=== PATIENT | male | born 1950 | race Hispanic/Latino ===

== ENCOUNTER 2017-08-19 16:14 | Inpatient (IN) | payer MEDICARE, SELFPAY ==
[2017-08-19 16:44] LABS: #Eosinphils 0.2 thou/uL (0.0-0.7); #Lymphocytes 0.9 thou/uL (1.20-3.40); #Monocytes 0.6 thou/uL (0.11-0.59); #Neutrophils 7.5 thou/uL (1.40-6.50); %Basophils 0.1 % (0.0-1.0); %Eosinophils 1.7 % (0.0-10.0); %Lymphocytes 9.5 % (21.0-51.0); Hematocrit 44.3 % (42.0-52.0); Mean Platelet Volume 7.4 fL (7.4-10.4); Red Blood Cell (RBC) Count 5.09 mill/uL (4.70-6.10); White Blood Cell (WBC) Count 9.1 thou/uL (4.8-10.8)
[2017-08-19 16:54] LABS: PTT 39.4 SEC (22.9-36.1); Prothrombin Time 24.4 SEC (12.0-14.7)
[2017-08-19 17:03] LABS: Lactic Acid - Sepsis 1.6 mmol/L (0.5-2.2)
[2017-08-19 17:06] LABS: Troponin I 0.012 ng/mL (< 0.028)
[2017-08-19 17:12] LABS: ALT (SGPT) 44 U/L (8-55); AST (SGOT) 27 U/L (5-34); Alkaline Phosphatase 89 U/L (40-150); Anion Gap 15 mmol/L (10-20); BUN (Urea Nitrogen) 13 mg/dL (8.4-25.7); Bilirubin, Total 0.4 mg/dL (0.2-1.2); CK (CPK) 213 U/L (30-200); Calc. Creatinine Clearance 0 mL/min (70-130); Calcium 9.3 mg/dL (7.8-10.44); Carbon Dioxide 25 mmol/L (23-31); Chloride 101 mmol/L (98-107); Estimated GFR-MDRD Greater than 90; Globulin 3.6 g/dL (2.4-3.5); Lipase 11 U/L (8-78); Protein, Total 7.6 g/dL (5.8-8.1)
--- NOTE | 2017-08-19 18:16 | RAD ---
AP VIEW OF THE CHEST 08/19/17 Cough. Concern for pneumonia. FINDINGS: The exam is compared to prior dated 05/17/15. There is patchy opacity within the left lower lobe which can be related to low lung volumes or devel oping pneumonia. Recommend correlation with the clinical exam. No pleural effusion or pneumothorax i s evident. Osseous structures are unchanged. Heart size is mildly prominent and stable. IMPRESSION: 1. Patchy opacity within the left lower lobe may be related to subsegmental atelectasis from th e low lung volumes. The patient had poor inspiration during the exam. A repeat two view of the chest may be helpful to exclude the presence of pneumonia in the left lower lobe. 2. Stable mild cardiomegaly. POS: MARIE
[2017-08-19] MEDS ORDERED: Acetaminophen 500 MG TAB ONE (18:18)
[2017-08-19] MEDS ORDERED: Ondansetron ODT 4 MG TAB SL PRN (20:06)
[2017-08-19] MEDS ORDERED: Sodium Chloride 0.9% 1,000 ML IV SCH ×2 (20:06→20:16)
[2017-08-19] MEDS ORDERED: Ondansetron HCl/PF 4 MG/2 ML Vial IVP PRN (20:06)
[2017-08-19] MEDS ORDERED: Zolpidem Tartrate 5 MG TAB PO PRN (20:16)
[2017-08-19] MEDS ORDERED: Acetaminophen 325 MG TAB PO PRN (20:16)
[2017-08-19] MEDS ORDERED: Senokot 8.6 MG TAB PO PRN (20:16)
[2017-08-19] MEDS ORDERED: Ondansetron ODT 4 MG TAB PO PRN (20:16)
[2017-08-19] MEDS: Famotidine 20 MG TAB PO SCH (21:45)
[2017-08-19] MEDS: cefTRIAXone\\ROCEPHIN 1 GM in Sodium Chloride 0.9% 100 ML IVPB SCH (21:45)
--- NOTE | 2017-08-19 21:58 | HP ---
HISTORY OF PRESENT ILLNESS: Mr. Cota is a 67-year-old man. Since early this morning, he has been coughing with productive sputum, wheezing and having some fever. He went to his primary ma re physician; he was felt to have pneumonia and he was sent to this facility. He was evaluated in [facility] ER and he was found to have a right-sided pneumonia. He is being admitted for management. He di d have some diarrhea yesterday. There is no vomiting. PAST MEDICAL HISTORY: Remarkable for hypertension, coronary artery disease, cerebrovascular acciden t and also he has a history of seizure disorder associated with his cerebrovascular accident. PAST SURGICAL HISTORY: Remarkable for coronary artery bypass graft and he had a percutaneous endosc opic gastrostomy, which was later removed. ALLERGIES: He does not have any known allergy. SOCIAL HISTORY: We have to mention that he is aphasic. History is obtained from his son and his wi fe. There is no history of cigarette smoking or history of EtOH abuse. No history of substance abu se. FAMILY HISTORY: Reviewed and is not contributory. HOME MEDICATIONS: Not available at this time for identification. REVIEW OF SYSTEMS: Constitutional: Admits to some weakness and he has been afebrile. HEENT: No h eadache, no ocular pain, no sore throat, no rhinorrhea, no earache, no epistaxis. Neck: No neck pa in, no neck stiffness. Cardiovascular: No shortness of breath. No chest pain. Pulmonary: Produc tive cough and wheezing. Gastrointestinal: He did have some diarrhea yesterday. There is no vomit ing, no abdominal pain. Genitourinary: No dysuria, no hematuria. Endocrinology: No heat or cold intolerance. No polyuria, polydipsia or polyphagia. Musculoskeletal: No arthralgia, no myalgia. Hematology: No abnormal bleeding, no ecchymosis. Skin: No rash, no itching. Lymphatic: No palpa ble lymphadenopathy, no painful lymphadenopathy. Allergies: No hayfever. Neurological: He does have any history of seizure disorder. Psychiatric: No anxiety, no depression. PHYSICAL EXAMINATION: GENERAL: At the current time, he is alert, responsive, aphasic, cooperative and in no acute distres s. VITAL SIGNS: Show a temperature of 100.7. Pulse rate 94. Respiratory rate 30, when I saw him, it was 22. Blood pressure 121/81. HEENT: His head is normocephalic and atraumatic. Both his pupils are equally and reactive. Ears a nd nose are normal. Oral mucosa is moist. Pharyngeal area is clear. NECK: Supple. There is no distention of the jugular vein. No lymphadenopathy felt. Thyroid gland not palpable. There is no carotid bruit. CHEST: Symmetrical with regular S1 and S2. LUNGS: Show some rhonchi and wheezing on both sides. ABDOMEN: Soft, bowel sounds are heard. Could not appreciate any organomegaly. EXTREMITIES: Limbs; he has +1 edema. NEUROLOGIC: He has a right-sided hemiplegia. LABORATORY DATA: His CBC done earlier showed a WBC of 9.1, hemoglobin of 14.6, hematocrit of 44.3, MCV of 87 and platelet 199. PT is 24.4 and PTT 39.4. Chemistry and electrolytes show sodium of 137 , potassium 3.9, chloride 101, CO2 of 25, BUN 13, creatinine 0.79, glucose 94, lactic acid 1.6, calc ium 9.3, total bilirubin 0.4, AST 27, ALT 44, alkaline phosphatase 89, CPK 213, albumin 4, lipase 11 and BNP 131.7. IMAGING DATA: Chest x-ray was reported to show patchy opacity within the left lower lobe. There is mild cardiomegaly. ASSESSMENT: This is a 67-year-old old man with history of old cerebrovascular accident, co ronary artery disease and hypertension who was admitted with pneumonia. PLAN: He will be started on Levaquin. He will be admitted to medical floor. He was noticed to be wheezing. We will start him on bronchodilators. Please see orders.
[2017-08-19] MEDS ORDERED: levETIRAcetam 500 mg/5 ml Oral Solution PO SCH (22:30)
[2017-08-19] MEDS: Azithromycin 500 MG in Sodium Chloride 0.9% 250 ML 250 ML IVPB SCH (23:23)
[2017-08-20 04:20] LABS: #Eosinphils 0.3 thou/uL (0.0-0.7); #Lymphocytes 1.6 thou/uL (1.20-3.40); #Monocytes 0.7 thou/uL (0.11-0.59); #Neutrophils 3.8 thou/uL (1.40-6.50); %Basophils 0.7 % (0.0-1.0); %Eosinophils 4.4 % (0.0-10.0); %Lymphocytes 24.6 % (21.0-51.0); Hematocrit 42.4 % (42.0-52.0); Mean Platelet Volume 7.5 fL (7.4-10.4); Red Blood Cell (RBC) Count 4.82 mill/uL (4.70-6.10); White Blood Cell (WBC) Count 6.4 thou/uL (4.8-10.8)
[2017-08-20 04:49] LABS: ALT (SGPT) 35 U/L (8-55); AST (SGOT) 25 U/L (5-34); Alkaline Phosphatase 75 U/L (40-150); Anion Gap 15 mmol/L (10-20); BUN (Urea Nitrogen) 10 mg/dL (8.4-25.7); Bilirubin, Total 0.3 mg/dL (0.2-1.2); Calc. Creatinine Clearance 142 mL/min (70-130); Calcium 8.7 mg/dL (7.8-10.44); Carbon Dioxide 24 mmol/L (23-31); Chloride 105 mmol/L (98-107); Estimated GFR-MDRD Greater than 90; Globulin 3.2 g/dL (2.4-3.5); Protein, Total 6.8 g/dL (5.8-8.1)
[2017-08-20] MEDS ORDERED: traMADol HCl 50 MG TAB PO PRN (06:59)
[2017-08-20] MEDS ORDERED: Loperamide HCl 2 MG CAP PO PRN (07:00)
[2017-08-20] MEDS ORDERED: Sodium Chloride 0.65% Nasal 44 ML BOT EA NARE PRN (07:00)
[2017-08-20] MEDS ORDERED: Milk Of Magnesia 30 ML UDCUP PO PRN (07:00)
[2017-08-20] MEDS ORDERED: Ondansetron HCl/PF 4 MG/2 ML Vial IVP PRN (07:00)
[2017-08-20] MEDS ORDERED: Eucerin (Mineral Oil/Petrolatum,White) 30 gm Jar TOP PRN (07:00)
[2017-08-20] MEDS ORDERED: Labetalol HCl 100 MG/20 ML VIAL SLOW IVP PRN (07:00)
[2017-08-20] MEDS ORDERED: Loratadine 10 MG TAB PO PRN (07:00)
[2017-08-20] MEDS ORDERED: Mag-Al 1200 mg/1200 mg/30 ML UDCUP PO PRN (07:00)
[2017-08-20] MEDS ORDERED: Artificial Tears 18 DROP/0.9 ML EA EYE PRN (07:00)
[2017-08-20] MEDS ORDERED: HYDROcodone/Acetaminophen 5/325 mg Tablet PO PRN (07:00)
[2017-08-20] MEDS ORDERED: Diabetic Tussin 200 MG/10 ML UDCUP PO PRN (07:00)
[2017-08-20] MEDS: Gabapentin 100 MG CAP PO SCH ×3 (08:45→20:47)
[2017-08-20] MEDS: Famotidine 20 MG TAB PO SCH ×2 (08:47→20:48)
[2017-08-20] MEDS: Digoxin 0.125 MG TAB PO SCH (08:47)
[2017-08-20] MEDS: Finasteride 5 MG TAB PO SCH (08:47)
[2017-08-20] MEDS: risperiDONE 0.25 MG TAB PO SCH ×2 (08:47→20:47)
[2017-08-20] MEDS: levETIRAcetam 500 mg/5 ml Oral Solution PO SCH ×2 (08:48→20:47)
[2017-08-20] MEDS: Enoxaparin Sodium 40 MG/0.4 ML SYRINGE SC SCH (08:48)
--- NOTE | 2017-08-20 12:22 | PDOC.PN ---
- Subjective Encounter Start Date: 08/20/17 Encounter Start Time: 10:00 -: old records requested/rev Patient seen and examined. No new complaints. No overnight events - Objective Resuscitation Status: Resuscitation Status FULL:Full Resuscitation MAR Reviewed: Yes Vital Signs & Weight: Vital Signs (12 hours) Temp Pulse Resp BP Pulse Ox 08/20/17 08:47 76 08/20/17 08:00 98.7 F 76 20 92 L 08/20/17 04:00 97.6 F 72 16 122/78 92 L 08/20/17 02:18 76 16 Result Diagrams: 08/20/17 03:57 08/20/17 03:57 Radiology Reviewed by me: Yes Phys Exam - Physical Examination Constitutional: NAD HEENT: PERRLA, moist MMs, sclera anicteric Neck: no JVD, supple Respiratory: no wheezing, no rhonchi left base rales Cardiovascular: RRR, no significant murmur, no rub Gastrointestinal: soft, non-tender, no distention, positive bowel sounds Musculoskeletal: no edema, pulses present Neurological: non-focal, normal sensation residual from old cva Lymphatic: no nodes Psychiatric: normal affect Skin: no rash, normal turgor Dx/Plan (1) Community acquired bacterial pneumonia Code(s): J15.9 - UNSPECIFIED BACTERIAL PNEUMONIA Status: Acute (2) Anxiety and depression Code(s): F41.8 - OTHER SPECIFIED ANXIETY DISORDERS Status: Chronic (3) BPH (benign prostatic hyperplasia) Code(s): N40.0 - BENIGN PROSTATIC HYPERPLASIA WITHOUT LOWER URINRY TRACT SYMP Status: Chronic (4) Chronic anticoagulation Code(s): Z79.01 - RETIREMENT (CURRENT) USE OF ANTICOAGULANTS Status: Chronic (5) Dementia Code(s): F03.90 - UNSPECIFIED DEMENTIA WITHOUT BEHAVIORAL DISTURBANCE Status: Chronic (6) Dyslipidemia Code(s): E78.5 - HYPERLIPIDEMIA, UNSPECIFIED Status: Chronic (7) H/O: CVA (cerebrovascular accident) Code(s): Z86.73 - PRSNL HX OF TIA (TIA), AND CEREB INFRC W/O RESID DEFICITS Status: Chronic (8) Hypertension Code(s): I10 - ESSENTIAL (PRIMARY) HYPERTENSION Status: Chronic (9) Paroxysmal atrial fibrillation Code(s): I48.0 - PAROXYSMAL ATRIAL FIBRILLATION Status: Chronic (10) Seizure disorder as sequela of cerebrovascular accident Code(s): I69.398 - OTHER SEQUELAE OF CEREBRAL INFARCTION; G40.909 - EPILEPSY, UNSP, NOT INTRACTABLE, WITHOUT STATUS EPILEPTICUS Status: Chronic - Plan cont current plan of care, plan discussed w/ family, continue antibiotics, respiratory therapy * home medication reconciled * DC IVF * add duoneb as needed * continue rocephin and zithromycin * medication reviewed as below * symptomatic treatment. * discussed with son. Review of Systems - Review of Systems ENT: negative: Ear Pain, Ear Discharge, Nose Pain, Nose Discharge, Nose Congestion, Mouth Pain, Mouth Swelling, Throat Pain, Throat Swelling, Other Respiratory: negative: Cough, Dry, Shortness of Breath, Hemoptysis, SOB with Excertion, Pleuritic Pain, Sputum, Wheezing Cardiovascular: negative: Chest Pain, Palpitations, Orthopnea, Paroxysmal Noc. Dyspnea, Edema, Light Headedness, Other Gastrointestinal: negative: Nausea, Vomiting, Abdominal Pain, Diarrhea, Constipation, Melena, Hematochezia, Other Genitourinary: negative: Dysuria, Frequency, Incontinence, Hematuria, Retention , Other Musculoskeletal: negative: Neck Pain, Shoulder Pain, Arm Pain, Back Pain, Hand Pain, Leg Pain, Foot Pain, Other - Medications/Allergies Allergies/Adverse Reactions: Allergies Allergy/AdvReac Type Severity Reaction Status Date / Time No Known Drug Allergies Allergy Verified 08/19/17 22:04 Medications: Current Medications Acetaminophen (Tylenol) 650 mg PO Q4H PRN PRN Reason: Headache/Fever or Pain Hydrocodone Bitart/Acetaminophen ([place] 5/325) 1 tab PO Q4H PRN PRN Reason: Moderate Pain (4-6) Al Hydroxide/Mg Hydroxide (Maalox) 15 ml PO Q4H PRN PRN Reason: Heartburn or Indigestion Albuterol/Ipratropium (Duoneb) 3 ml NEB [id number] PRN PRN Reason: SOB &/or Wheezing Artificial Tears (Tears Naturale) 0 drop EA EYE PRN PRN PRN Reason: Dry Eyes Aspirin (Aspirin Chewable) 81 mg PO DAILY [facility] Last Admin: 08/20/17 08:45 Dose: 81 mg Atorvastatin Calcium (Lipitor) 20 mg PO HS [facility] Digoxin (Lanoxin) 0.125 mg PO DAILY [facility] Last Admin: 08/20/17 08:47 Dose: 0.125 mg Diltiazem HCl (Cardizem) 60 mg PO TID [facility] Last Admin: 08/20/17 08:46 Dose: 60 mg Donepezil HCl (Aricept) 10 mg PO HS [facility] Enoxaparin Sodium (Lovenox) 40 mg SC 0900 [facility] Last Admin: 08/20/17 08:48 Dose: 40 mg Famotidine (Pepcid) 20 mg PO BID [facility] Last Admin: 08/20/17 08:47 Dose: 20 mg Finasteride (Proscar) 5 mg PO DAILY [facility] Last Admin: 08/20/17 08:47 Dose: 5 mg Gabapentin (Neurontin) 100 mg PO TID [facility] Last Admin: 08/20/17 08:45 Dose: 100 mg Guaifenesin (Robitussin Sf) 200 mg PO Q4H PRN PRN Reason: Cough Hydralazine HCl (Apresoline) 10 mg SLOW IVP Q4H PRN PRN Reason: Systolic BP > 180 Azithromycin 500 mg/ Sodium (Chloride) 250 mls @ 250 mls/hr IVPB Q24HR [facility] Last Admin: 08/19/17 23:23 Dose: 250 mls Ceftriaxone Sodium 1 gm/ (Sodium Chloride) 100 mls @ 200 mls/hr IVPB Q24HR [facility] Last Admin: 08/19/17 21:45 Dose: 100 mls Labetalol HCl (Normodyne) 20 mg SLOW IVP Q4H PRN PRN Reason: Systolic BP > 180 Levetiracetam (Keppra Oral Solution) 500 mg PO BID [facility] Last Admin: 08/20/17 08:48 Dose: 500 mg Loperamide HCl (Imodium) 2 mg PO PRN PRN PRN Reason: Diarrhea/Loose Stools Loratadine (Claritin) 10 mg PO DAILYPRN PRN PRN Reason: Sinus Symptoms Magnesium Hydroxide (Milk Of Magnesium) 30 ml PO DAILYPRN PRN PRN Reason: Constipation Mineral Oil/White Petrolatum (Eucerin Cream) 0 gm TOP BIDPRN PRN PRN Reason: Dry Skin Ondansetron HCl (Zofran Odt) 4 mg PO Q6H PRN PRN Reason: Nausea/Vomiting Ondansetron HCl (Zofran) 4 mg IVP Q6H PRN PRN Reason: Nausea/Vomiting Risperidone (Risperidone) 0.5 mg PO BID [facility] Last Admin: 08/20/17 08:47 Dose: 0.5 mg Senna (Senokot) 2 tab PO HSPRN PRN PRN Reason: Constipation Sertraline HCl (Zoloft) 100 mg PO DAILY [facility] Last Admin: 08/20/17 08:45 Dose: 100 mg Sodium Chloride (Flush - Normal Saline) 10 ml IVF Q12HR [facility] Last Admin: 08/20/17 08:48 Dose: 10 ml Sodium Chloride (Flush - Normal Saline) 10 ml IVF PRN PRN PRN Reason: Saline Flush Sodium Chloride ([place] Nasal [place] 0.65%) 0 ml EA NARE QIDPRN PRN PRN Reason: Nasal Congestion Tamsulosin HCl (Flomax) 0.4 mg PO HS [facility] Tramadol HCl (Ultram) 50 mg PO QID PRN PRN Reason: Pain Warfarin Sodium (Coumadin) 10 mg PO 1700 [facility] Zolpidem Tartrate (Ambien) 5 mg PO HSPRN PRN PRN Reason: Insomnia
[2017-08-20] MEDS: Warfarin Sodium 10 MG TAB PO SCH (16:05)
[2017-08-20] MEDS: cefTRIAXone\\ROCEPHIN 1 GM in Sodium Chloride 0.9% 100 ML IVPB SCH (20:46)
[2017-08-20] MEDS: Tamsulosin HCl 0.4 MG CAP PO SCH (20:48)
[2017-08-20] MEDS: Atorvastatin Calcium 20 MG TAB PO SCH (20:48)
[2017-08-20] MEDS: Donepezil HCl 10 MG TAB PO SCH (20:49)
[2017-08-20] MEDS: Azithromycin 500 MG in Sodium Chloride 0.9% 250 ML 250 ML IVPB SCH (21:41)
[2017-08-21] MEDS: Famotidine 20 MG TAB PO SCH ×2 (08:18→20:33)
[2017-08-21] MEDS: Digoxin 0.125 MG TAB PO SCH (08:19)
[2017-08-21] MEDS: Gabapentin 100 MG CAP PO SCH ×3 (08:19→20:31)
[2017-08-21] MEDS: Finasteride 5 MG TAB PO SCH (08:20)
[2017-08-21] MEDS: risperiDONE 0.25 MG TAB PO SCH ×2 (08:20→20:31)
[2017-08-21] MEDS: Enoxaparin Sodium 40 MG/0.4 ML SYRINGE SC SCH (08:21)
[2017-08-21] MEDS: levETIRAcetam 500 mg/5 ml Oral Solution PO SCH ×2 (10:06→20:31)
--- NOTE | 2017-08-21 10:51 | PDOC.PN ---
- Subjective Encounter Start Date: 08/21/17 Encounter Start Time: 09:50 Patient seen and examined. No new complaints. No overnight events - Objective Resuscitation Status: Resuscitation Status FULL:Full Resuscitation MAR Reviewed: Yes Vital Signs & Weight: Vital Signs (12 hours) Temp Pulse Resp BP BP Pulse Ox 08/21/17 08:19 86 08/21/17 08:00 98.4 F 86 20 105/74 93 L 08/21/17 04:31 98.2 F 81 20 121/72 93 L 08/21/17 02:08 73 16 93 L 08/21/17 00:35 98.5 F 76 20 96/56 L 92 L I&O: 08/20/17 08/21/17 08/22/17 06:59 06:59 06:59 Intake Total 550 Balance 550 Result Diagrams: 08/20/17 03:57 08/20/17 03:57 Phys Exam - Physical Examination Constitutional: NAD HEENT: PERRLA, moist MMs, sclera anicteric Neck: no JVD, supple Respiratory: no wheezing, no rales, no rhonchi coarse sound Cardiovascular: RRR, no significant murmur, no rub Gastrointestinal: soft, non-tender, no distention, positive bowel sounds Musculoskeletal: no edema, pulses present Neurological: moves all 4 limbs Psychiatric: normal affect Skin: no rash, normal turgor Dx/Plan (1) Community acquired bacterial pneumonia Code(s): J15.9 - UNSPECIFIED BACTERIAL PNEUMONIA Status: Acute (2) Anxiety and depression Code(s): F41.8 - OTHER SPECIFIED ANXIETY DISORDERS Status: Chronic (3) BPH (benign prostatic hyperplasia) Code(s): N40.0 - BENIGN PROSTATIC HYPERPLASIA WITHOUT LOWER URINRY TRACT SYMP Status: Chronic (4) Chronic anticoagulation Code(s): Z79.01 - [employer] (CURRENT) USE OF ANTICOAGULANTS Status: Chronic (5) Dementia Code(s): F03.90 - UNSPECIFIED DEMENTIA WITHOUT BEHAVIORAL DISTURBANCE Status: Chronic (6) Dyslipidemia Code(s): E78.5 - HYPERLIPIDEMIA, UNSPECIFIED Status: Chronic (7) H/O: CVA (cerebrovascular accident) Code(s): Z86.73 - PRSNL HX OF TIA (TIA), AND CEREB INFRC W/O RESID DEFICITS Status: Chronic (8) Hypertension Code(s): I10 - ESSENTIAL (PRIMARY) HYPERTENSION Status: Chronic (9) Paroxysmal atrial fibrillation Code(s): I48.0 - PAROXYSMAL ATRIAL FIBRILLATION Status: Chronic (10) Seizure disorder as sequela of cerebrovascular accident Code(s): I69.398 - OTHER SEQUELAE OF CEREBRAL INFARCTION; G40.909 - EPILEPSY, UNSP, NOT INTRACTABLE, WITHOUT STATUS EPILEPTICUS Status: Chronic - Plan cont current plan of care, plan discussed w/ family, continue antibiotics * continue rocephin and zithromycin * repeat labs tomorrow * medication reviewed as below * symptomatic treatment. * pt is clinically improving. Review of Systems - Review of Systems ENT: negative: Ear Pain, Ear Discharge, Nose Pain, Nose Discharge, Nose Congestion, Mouth Pain, Mouth Swelling, Throat Pain, Throat Swelling, Other Respiratory: negative: Cough, Dry, Shortness of Breath, Hemoptysis, SOB with Excertion, Pleuritic Pain, Sputum, Wheezing Cardiovascular: negative: Chest Pain, Palpitations, Orthopnea, Paroxysmal Noc. Dyspnea, Edema, Light Headedness, Other Gastrointestinal: negative: Nausea, Vomiting, Abdominal Pain, Diarrhea, Constipation, Melena, Hematochezia, Other Genitourinary: negative: Dysuria, Frequency, Incontinence, Hematuria, Retention , Other Musculoskeletal: negative: Neck Pain, Shoulder Pain, Arm Pain, Back Pain, Hand Pain, Leg Pain, Foot Pain, Other - Medications/Allergies Allergies/Adverse Reactions: Allergies Allergy/AdvReac Type Severity Reaction Status Date / Time No Known Drug Allergies Allergy Verified 08/19/17 22:04 Medications: Current Medications Acetaminophen (Tylenol) 650 mg PO Q4H PRN PRN Reason: Headache/Fever or Pain Hydrocodone Bitart/Acetaminophen ([place] 5/325) 1 tab PO Q4H PRN PRN Reason: Moderate Pain (4-6) Al Hydroxide/Mg Hydroxide (Maalox) 15 ml PO Q4H PRN PRN Reason: Heartburn or Indigestion Albuterol/Ipratropium (Duoneb) 3 ml NEB [id number] PRN PRN Reason: SOB &/or Wheezing Last Admin: 08/21/17 02:08 Dose: 3 ml Artificial Tears (Tears Naturale) 0 drop EA EYE PRN PRN PRN Reason: Dry Eyes Aspirin (Aspirin Chewable) 81 mg PO DAILY [facility] Last Admin: 08/21/17 08:19 Dose: 81 mg Atorvastatin Calcium (Lipitor) 20 mg PO HS [facility] Last Admin: 08/20/17 20:48 Dose: 20 mg Digoxin (Lanoxin) 0.125 mg PO DAILY [facility] Last Admin: 08/21/17 08:19 Dose: 0.125 mg Diltiazem HCl (Cardizem) 60 mg PO TID [facility] Last Admin: 08/21/17 08:21 Dose: 60 mg Donepezil HCl (Aricept) 10 mg PO [facility] Last Admin: 08/20/17 20:49 Dose: 10 mg Enoxaparin Sodium (Lovenox) 40 mg SC 09 [facility] Last Admin: 08/21/17 08:21 Dose: 40 mg Famotidine (Pepcid) 20 mg PO BID [facility] Last Admin: 08/21/17 08:18 Dose: 20 mg Finasteride (Proscar) 5 mg PO DAILY [facility] Last Admin: 08/21/17 08:20 Dose: 5 mg Gabapentin (Neurontin) 100 mg PO TID [facility] Last Admin: 08/21/17 08:19 Dose: 100 mg Guaifenesin (Robitussin Sf) 200 mg PO Q4H PRN PRN Reason: Cough Hydralazine HCl (Apresoline) 10 mg SLOW IVP Q4H PRN PRN Reason: Systolic BP > 180 Azithromycin 500 mg/ Sodium (Chloride) 250 mls @ 250 mls/hr IVPB Q24HR [facility] Last Admin: 08/20/17 21:41 Dose: 250 mls Ceftriaxone Sodium 1 gm/ (Sodium Chloride) 100 mls @ 200 mls/hr IVPB Q24HR [facility] Last Admin: 08/20/17 20:46 Dose: 100 mls Labetalol HCl (Normodyne) 20 mg SLOW IVP Q4H PRN PRN Reason: Systolic BP > 180 Levetiracetam (Keppra Oral Solution) 500 mg PO BID [facility] Last Admin: 08/21/17 10:06 Dose: 500 mg Loperamide HCl (Imodium) 2 mg PO PRN PRN PRN Reason: Diarrhea/Loose Stools Loratadine (Claritin) 10 mg PO DAILYPRN PRN PRN Reason: Sinus Symptoms Magnesium Hydroxide (Milk Of Magnesium) 30 ml PO DAILYPRN PRN PRN Reason: Constipation Mineral Oil/White Petrolatum (Eucerin Cream) 0 gm TOP BIDPRN PRN PRN Reason: Dry Skin Ondansetron HCl (Zofran Odt) 4 mg PO Q6H PRN PRN Reason: Nausea/Vomiting Ondansetron HCl (Zofran) 4 mg IVP Q6H PRN PRN Reason: Nausea/Vomiting Risperidone (Risperidone) 0.5 mg PO BID [facility] Last Admin: 08/21/17 08:20 Dose: 0.5 mg Senna (Senokot) 2 tab PO HSPRN PRN PRN Reason: Constipation Sertraline HCl (Zoloft) 100 mg PO DAILY [facility] Last Admin: 08/21/17 08:18 Dose: 100 mg Sodium Chloride (Flush - Normal Saline) 10 ml IVF Q12HR [facility] Last Admin: 08/21/17 08:22 Dose: 10 ml Sodium Chloride (Flush - Normal Saline) 10 ml IVF PRN PRN PRN Reason: Saline Flush Sodium Chloride ([place] Nasal [place] 0.65%) 0 ml EA NARE QIDPRN PRN PRN Reason: Nasal Congestion Tamsulosin HCl (Flomax) 0.4 mg PO HS [facility] Last Admin: 08/20/17 20:48 Dose: 0.4 mg Tramadol HCl (Ultram) 50 mg PO QID PRN PRN Reason: Pain Warfarin Sodium (Coumadin) 10 mg PO 1700 [facility] Last Admin: 08/20/17 16:05 Dose: 10 mg Zolpidem Tartrate (Ambien) 5 mg PO HSPRN PRN PRN Reason: Insomnia
[2017-08-21] MEDS: Warfarin Sodium 10 MG TAB PO SCH (16:50)
[2017-08-21] MEDS: Atorvastatin Calcium 20 MG TAB PO SCH (20:31)
[2017-08-21] MEDS: Donepezil HCl 10 MG TAB PO SCH (20:32)
[2017-08-21] MEDS: Tamsulosin HCl 0.4 MG CAP PO SCH (20:32)
[2017-08-21] MEDS: Azithromycin 500 MG in Sodium Chloride 0.9% 250 ML 250 ML IVPB SCH (20:33)
[2017-08-21] MEDS: cefTRIAXone\\ROCEPHIN 1 GM in Sodium Chloride 0.9% 100 ML IVPB SCH (20:33)
[2017-08-22 04:39] LABS: #Eosinphils 0.3 thou/uL (0.0-0.7); #Lymphocytes 1.7 thou/uL (1.20-3.40); #Monocytes 0.6 thou/uL (0.11-0.59); #Neutrophils 4.8 thou/uL (1.40-6.50); %Basophils 0.5 % (0.0-1.0); %Eosinophils 4.6 % (0.0-10.0); %Lymphocytes 23.2 % (21.0-51.0); %Monocytes 7.6 % (0.0-10.0); Hematocrit 45.2 % (42.0-52.0); Mean Platelet Volume 7.9 fL (7.4-10.4); White Blood Cell (WBC) Count 7.5 thou/uL (4.8-10.8)
[2017-08-22 04:45] LABS: Prothrombin Time 20.6 SEC (12.0-14.7)
[2017-08-22 05:18] LABS: Anion Gap 16 mmol/L (10-20); BUN (Urea Nitrogen) 11 mg/dL (8.4-25.7); Calc. Creatinine Clearance 140 mL/min (70-130); Carbon Dioxide 25 mmol/L (23-31); Chloride 102 mmol/L (98-107); Estimated GFR-MDRD Greater than 90
[2017-08-22 08:04] VITALS: BP 128/81; TEMP 98.1
[2017-08-22] MEDS: Digoxin 0.125 MG TAB PO SCH (09:30)
[2017-08-22] MEDS: Gabapentin 100 MG CAP PO SCH (09:30)
[2017-08-22] MEDS: Enoxaparin Sodium 40 MG/0.4 ML SYRINGE SC SCH (09:30)
[2017-08-22] MEDS: Finasteride 5 MG TAB PO SCH (09:30)
[2017-08-22] MEDS: risperiDONE 0.25 MG TAB PO SCH (09:30)
[2017-08-22] MEDS: Famotidine 20 MG TAB PO SCH (09:30)
[2017-08-22] MEDS: levETIRAcetam 500 mg/5 ml Oral Solution PO SCH (09:36)
--- NOTE | 2017-08-22 11:15 | PDOC.PN ---
- Subjective Encounter Start Date: 08/22/17 Encounter Start Time: 08:55 Patient seen and examined. No new complaints. No overnight events - Objective Resuscitation Status: Resuscitation Status FULL:Full Resuscitation MAR Reviewed: Yes Vital Signs & Weight: Vital Signs (12 hours) Temp Pulse Resp BP Pulse Ox 08/22/17 09:37 97 08/22/17 09:36 77 20 97 08/22/17 09:30 87 08/22/17 08:04 98.1 F 87 20 128/81 91 L 08/22/17 08:00 98.1 F 77 20 I&O: 08/21/17 08/22/17 08/23/17 06:59 06:59 06:59 Intake Total 550 Balance 550 Result Diagrams: 08/22/17 03:51 08/22/17 03:51 Phys Exam - Physical Examination Constitutional: NAD HEENT: PERRLA, moist MMs, sclera anicteric Neck: no JVD, supple Respiratory: no rales, wheezing present Cardiovascular: RRR, no significant murmur, no rub Gastrointestinal: soft, non-tender, no distention, positive bowel sounds Musculoskeletal: no edema, pulses present Neurological: moves all 4 limbs Lymphatic: no nodes Psychiatric: normal affect Skin: no rash, normal turgor Dx/Plan (1) Community acquired bacterial pneumonia Code(s): J15.9 - UNSPECIFIED BACTERIAL PNEUMONIA Status: Acute (2) Anxiety and depression Code(s): F41.8 - OTHER SPECIFIED ANXIETY DISORDERS Status: Chronic (3) BPH (benign prostatic hyperplasia) Code(s): N40.0 - BENIGN PROSTATIC HYPERPLASIA WITHOUT LOWER URINRY TRACT SYMP Status: Chronic (4) Chronic anticoagulation Code(s): Z79.01 - [employer] (CURRENT) USE OF ANTICOAGULANTS Status: Chronic (5) Dementia Code(s): F03.90 - UNSPECIFIED DEMENTIA WITHOUT BEHAVIORAL DISTURBANCE Status: Chronic (6) Dyslipidemia Code(s): E78.5 - HYPERLIPIDEMIA, UNSPECIFIED Status: Chronic (7) H/O: CVA (cerebrovascular accident) Code(s): Z86.73 - PRSNL HX OF TIA (TIA), AND CEREB INFRC W/O RESID DEFICITS Status: Chronic (8) Hypertension Code(s): I10 - ESSENTIAL (PRIMARY) HYPERTENSION Status: Chronic (9) Paroxysmal atrial fibrillation Code(s): I48.0 - PAROXYSMAL ATRIAL FIBRILLATION Status: Chronic (10) Seizure disorder as sequela of cerebrovascular accident Code(s): I69.398 - OTHER SEQUELAE OF CEREBRAL INFARCTION; G40.909 - EPILEPSY, UNSP, NOT INTRACTABLE, WITHOUT STATUS EPILEPTICUS Status: Chronic - Plan cont current plan of care, plan discussed w/ family, continue antibiotics, respiratory therapy * will give solumedrol one dose * will give duoneb now * then will consider discharge after iv antibiotics * pt and family prefer discharge * medication reviewed as below * symptomatic treatment. * see discharge summery * medically stable.. Review of Systems - Review of Systems Eyes: negative: Pain, Vision Change, Conjunctivae Inflammation, Eyelid Inflammation, Redness, Other ENT: negative: Ear Pain, Ear Discharge, Nose Pain, Nose Discharge, Nose Congestion, Mouth Pain, Mouth Swelling, Throat Pain, Throat Swelling, Other Respiratory: negative: Cough, Dry, Shortness of Breath, Hemoptysis, SOB with Excertion, Pleuritic Pain, Sputum, Wheezing Cardiovascular: negative: Chest Pain, Palpitations, Orthopnea, Paroxysmal Noc. Dyspnea, Edema, Light Headedness, Other Gastrointestinal: negative: Nausea, Vomiting, Abdominal Pain, Diarrhea, Constipation, Melena, Hematochezia, Other Genitourinary: negative: Dysuria, Frequency, Incontinence, Hematuria, Retention , Other - Medications/Allergies Allergies/Adverse Reactions: Allergies Allergy/AdvReac Type Severity Reaction Status Date / Time No Known Drug Allergies Allergy Verified 08/19/17 22:04 Medications: Current Medications Acetaminophen (Tylenol) 650 mg PO Q4H PRN PRN Reason: Headache/Fever or Pain Hydrocodone Bitart/Acetaminophen ([place] 5/325) 1 tab PO Q4H PRN PRN Reason: Moderate Pain (4-6) Al Hydroxide/Mg Hydroxide (Maalox) 15 ml PO Q4H PRN PRN Reason: Heartburn or Indigestion Albuterol/Ipratropium (Duoneb) 3 ml NEB [id number] PRN PRN Reason: SOB &/or Wheezing Last Admin: 08/21/17 02:08 Dose: 3 ml Artificial Tears (Tears Naturale) 0 drop EA EYE PRN PRN PRN Reason: Dry Eyes Aspirin (Aspirin Chewable) 81 mg PO DAILY [facility]RE[facility] Last Admin: 08/22/17 09:30 Dose: 81 mg Atorvastatin Calcium (Lipitor) 20 mg PO HS [facility] Last Admin: 08/21/17 20:31 Dose: 20 mg Digoxin (Lanoxin) 0.125 mg PO DAILY [facility] Last Admin: 08/22/17 09:30 Dose: 0.125 mg Diltiazem HCl (Cardizem) 60 mg PO TID [facility] Last Admin: 08/22/17 09:30 Dose: 60 mg Donepezil HCl (Aricept) 10 mg PO HS [facility] Last Admin: 08/21/17 20:32 Dose: 10 mg Enoxaparin Sodium (Lovenox) 40 mg SC 09 [facility] Last Admin: 08/22/17 09:30 Dose: 40 mg Famotidine (Pepcid) 20 mg PO BID [facility] Last Admin: 08/22/17 09:30 Dose: 20 mg Finasteride (Proscar) 5 mg PO DAILY [facility] Last Admin: 08/22/17 09:30 Dose: 5 mg Gabapentin (Neurontin) 100 mg PO TID [facility] Last Admin: 08/22/17 09:30 Dose: 100 mg Guaifenesin (Robitussin Sf) 200 mg PO Q4H PRN PRN Reason: Cough Hydralazine HCl (Apresoline) 10 mg SLOW IVP Q4H PRN PRN Reason: Systolic BP > 180 Azithromycin 500 mg/ Sodium (Chloride) 250 mls @ 250 mls/hr IVPB Q24HR [facility] Last Admin: 08/21/17 20:33 Dose: 250 mls Ceftriaxone Sodium 1 gm/ (Sodium Chloride) 100 mls @ 200 mls/hr IVPB Q24HR [facility] Last Admin: 08/21/17 20:33 Dose: 100 mls Labetalol HCl (Normodyne) 20 mg SLOW IVP Q4H PRN PRN Reason: Systolic BP > 180 Levetiracetam (Keppra Oral Solution) 500 mg PO BID [facility] Last Admin: 08/22/17 09:36 Dose: 500 mg Loperamide HCl (Imodium) 2 mg PO PRN PRN PRN Reason: Diarrhea/Loose Stools Loratadine (Claritin) 10 mg PO DAILYPRN PRN PRN Reason: Sinus Symptoms Magnesium Hydroxide (Milk Of Magnesium) 30 ml PO DAILYPRN PRN PRN Reason: Constipation Mineral Oil/White Petrolatum (Eucerin Cream) 0 gm TOP BIDPRN PRN PRN Reason: Dry Skin Ondansetron HCl (Zofran Odt) 4 mg PO Q6H PRN PRN Reason: Nausea/Vomiting Ondansetron HCl (Zofran) 4 mg IVP Q6H PRN PRN Reason: Nausea/Vomiting Risperidone (Risperidone) 0.5 mg PO BID [facility] Last Admin: 08/22/17 09:30 Dose: 0.5 mg Senna (Senokot) 2 tab PO HSPRN PRN PRN Reason: Constipation Sertraline HCl (Zoloft) 100 mg PO DAILY [facility] Last Admin: 08/22/17 09:30 Dose: 100 mg Sodium Chloride (Flush - Normal Saline) 10 ml IVF Q12HR [facility] Last Admin: 08/22/17 09:34 Dose: 10 ml Sodium Chloride (Flush - Normal Saline) 10 ml IVF PRN PRN PRN Reason: Saline Flush Sodium Chloride ([place] Nasal [place] 0.65%) 0 ml EA NARE QIDPRN PRN PRN Reason: Nasal Congestion Tamsulosin HCl (Flomax) 0.4 mg PO HS [facility] Last Admin: 08/21/17 20:32 Dose: 0.4 mg Tramadol HCl (Ultram) 50 mg PO QID PRN PRN Reason: Pain Warfarin Sodium (Coumadin) 10 mg PO 1700 [facility] Last Admin: 08/21/17 16:50 Dose: 10 mg Zolpidem Tartrate (Ambien) 5 mg PO HSPRN PRN PRN Reason: Insomnia
--- NOTE | 2017-08-22 13:26 | DIS ---
DATE OF ADMISSION: 08/19/2017 DATE OF DISCHARGE: 08/22/2017 PRIMARY CARE PHYSICIAN: Iban Shukla, family nurse practitioner. DISCHARGE DISPOSITION: Home. PRIMARY DISCHARGE DIAGNOSIS: Left lower lobe community-acquired bacterial pneumonia. SECONDARY DISCHARGE DIAGNOSES: Anxiety, depression, benign enlargement of prostate, chronic anticoa gulation, dementia, dyslipidemia, history of cerebrovascular accident, hypertension, paroxysmal atri al fibrillation, seizure disorder as a sequelae of cerebrovascular accident. PRIMARY PROCEDURE/OPERATION: None. RADIOLOGICAL INVESTIGATION: Chest x-ray. SIGNIFICANT LABORATORY DATA: Hemoglobin 14.7, INR 1.7, creatinine 0.69. Electrolytes, LFTs normal. Blood culture negative, influenza negative. DISCHARGE MEDICATIONS: New medications we prescribed from this admission is Omnicef 300 mg p.o. b.i .d. for 7 days, Ventolin HFA 2 puffs q.6 hourly p.r.n., prednisone 20 mg p.o. daily for 5 days. The rest of medication will be continued as per previous. CONTRAINDICATIONS: None. CODE STATUS: FULL CODE. INPATIENT CONSULTANTS: None. ALLERGIES: No known drug allergies. DISCHARGE PLAN: Post hospital, the patient will follow up with primary care physician. HOSPITAL COURSE: A 67-year-old male who was admitted by Dr. Jaimes. Please see his H\T\P for furth er details. This patient came to emergency room with respiratory symptoms. He was having cough and low grade fever. He had chest x-ray, which showed left lower lobe infiltration. The patient was a dmitted for pneumonia. The patient was treated with Rocephin and azithromycin, and the patient was also given Solu-Medrol and DuoNeb therapy before discharge. This patient has predominantly upper re spiratory symptoms with mild wheezing and that is why we prescribed prednisone and Ventolin inhaler on discharge, patient will finish Omnicef for 7 more days. While in the hospital, he remained afebr ile and hemodynamically stable. He is saturating normal on room air. At this point, patient is med ically stable for discharge. The patient was seen and examined at bedside today. Please see my pro sophia note from today for further details.
== END 2017-08-22 13:27 | disposition home or self-care (01) | DRG 195 ==
LOC: ERS 16:14 → T4-B 18:00
PROVIDERS: ADMIT Hospitalist; ATTEND Hospitalist
DX: J15.9 Unspecified bacterial pneumonia (principal); I48.0 Paroxysmal atrial fibrillation; F03.90 Unspecified dementia, unspecified severity, without behavioral disturbance, psychotic disturbance, mood disturbance, and anxiety; E78.5 Hyperlipidemia, unspecified; G40.909 Epilepsy, unspecified, not intractable, without status epilepticus; I10 Essential (primary) hypertension; F41.8 Other specified anxiety disorders; N40.0 Benign prostatic hyperplasia without lower urinary tract symptoms; Z79.01 Long term (current) use of anticoagulants; I69.398 Other sequelae of cerebral infarction; I25.10 Atherosclerotic heart disease of native coronary artery without angina pectoris; Z95.1 Presence of aortocoronary bypass graft; Z23 Encounter for immunization
CPT/HCPCS: 36415; 71010; 80048; 80053; 82553; 83605; 83690; 83880; 84484; 85025; 85610; 85730; 87040; 90471; 90732; 93005; 96365; 96366; A4216; G0009; J0456; J0696; J1650; J1956; J2920; J7050; J7620

== ENCOUNTER 2017-09-28 11:03 | Outpatient (CLI) | payer MEDICARE | END 2017-09-28 11:04 | disposition home or self-care (01) | PROVIDERS: ATTEND Nurse Practitioner Family | DX: I69.391 Dysphagia following cerebral infarction (principal); R13.10 Dysphagia, unspecified; R63.3 Feeding difficulties ==

== ENCOUNTER 2018-12-25 10:09 | Outpatient (CLI) | payer BC, MEDICARE | END 2018-12-25 10:10 | disposition home or self-care (01) | PROVIDERS: ATTEND Family Medicine | DX: Z09 Encounter for follow-up examination after completed treatment for conditions other than malignant neoplasm (principal); Z86.73 Personal history of transient ischemic attack (TIA), and cerebral infarction without residual deficits | CPT/HCPCS: G8978-GP-CK; G8980-GP-CK ==

== ENCOUNTER 2019-08-02 08:33 | Emergency (ER) | payer BC, MEDICARE ==
--- NOTE | 2019-08-02 09:15 | RAD ---
RIGHT HAND 3 VIEWS: Date: 08/02/19 HISTORY: Pain. COMPARISON: None. FINDINGS: Mild positive ulnar variance. There is sclerosis of the lateral lunate. Subcortical cyst of the media l lunate and triquetrum. Soft tissue swelling along the medial hypothenar soft tissues. No acute frac ture is appreciated. Advanced degenerative change at the proximal interphalangeal joint small finger. Advanced joint space narrowing, sclerosis, and osteophyte formation of the second and third metacarpo phalangeal joints. IMPRESSION: Chronic findings. No acute fracture. POS: CET
== END 2019-08-02 10:10 | disposition home or self-care (01) ==
LOC: ERS 08:33
DX: S60.221A Contusion of right hand, initial encounter (principal); I10 Essential (primary) hypertension; Z86.73 Personal history of transient ischemic attack (TIA), and cerebral infarction without residual deficits; F32.9 Major depressive disorder, single episode, unspecified; Z79.82 Long term (current) use of aspirin; Z79.84 Long term (current) use of oral hypoglycemic drugs; Z79.899 Other long term (current) drug therapy; W19.XXXA Unspecified fall, initial encounter; Y93.02 Activity, running

== ENCOUNTER 2019-12-13 08:41 | Emergency (ER) | payer BC, MEDICARE ==
--- NOTE | 2019-12-13 09:31 | RAD ---
EXAM: Single view of the chest HISTORY: Flulike symptoms COMPARISON: 08/17/2017 FINDINGS: Single view of the chest shows a normal sized cardiomediastinal silhouette. There is no long dence of consolidation, mass, or pleural effusion. The bones are unremarkable. IMPRESSION: No evidence of acute cardiopulmonary disease
--- NOTE | 2019-12-13 10:06 | CT ---
Exam: Head CT without contrast HISTORY: Nausea, vomiting and headache. COMPARISON: 05/14/2017 FINDINGS: Hemorrhage: No intraparenchymal hemorrhage or extra-axial hematoma. Brain parenchyma: Stable encephalomalacia and gliosis due to remote left MCA distribution insult. Co rtical philippe-white matter differentiation the right cerebrum is maintained. There is no midline shift. Ventricular system: Stable configuration the ventricular system. Stable ex vacuo dilatation of the le ft ventricle. Calvarium: Intact. Sinuses and mastoid air cells: Adequate aeration. IMPRESSION: No acute intracranial process.
[2019-12-13 10:14] LABS: #Eosinphils 0.1 thou/uL (0.0-0.7); #Lymphocytes 1.5 thou/uL (1.20-3.40); #Monocytes 0.6 thou/uL (0.11-0.59); #Neutrophils 5.9 thou/uL (1.40-6.50); %Basophils 0.3 % (0.0-1.0); %Eosinophils 1.6 % (0.0-10.0); %Lymphocytes 18.5 % (21.0-51.0); %Monocytes 7.3 % (0.0-10.0); %Neutrophils 72.3 % (42.0-75.0); Hemoglobin 13.5 g/dL (14.0-18.0); Mean Corpuscular HGB CONC 33.6 g/dL (32.0-36.0); Mean Corpuscular Hemoglobin 28.8 pg (27.0-31.0); Mean Corpuscular Volume 85.8 fL (78.0-98.0); Mean Platelet Volume 8.3 fL (7.4-10.4); Platelet Count 196 thou/uL (130-400); RBC Distribution Width 12.1 % (11.5-14.5); Red Blood Cell (RBC) Count 4.69 mill/uL (4.70-6.10); White Blood Cell (WBC) Count 8.2 thou/uL (4.8-10.8)
[2019-12-13 10:27] LABS: ALT (SGPT) 33 U/L (8-55); AST (SGOT) 20 U/L (5-34); Albumin 4.2 g/dL (3.4-4.8); Alkaline Phosphatase 103 U/L (40-110); Anion Gap 14 mmol/L (10-20); BUN (Urea Nitrogen) 8 mg/dL (8.4-25.7); Bilirubin, Total 0.4 mg/dL (0.2-1.2); Calc. Creatinine Clearance 0 mL/min (70-130); Calcium 9.6 mg/dL (7.8-10.44); Carbon Dioxide 28 mmol/L (23-31); Chloride 99 mmol/L (98-107); Estimated GFR-MDRD Greater than 90; Globulin 2.8 g/dL (2.4-3.5); Glucose 100 mg/dL (80-115); Lipase 20 U/L (8-78); Potassium 3.7 mmol/L (3.5-5.1); Sodium 137 mmol/L (136-145)
[2019-12-13] MEDS ORDERED: Ondansetron PF 4 MG/2 ML Vial ONE (10:28)
[2019-12-13] MEDS ORDERED: Metoclopramide HCl 10 MG/2 ML VIAL ONE (10:28)
[2019-12-13] MEDS ORDERED: Ketorolac Tromethamine 30 MG/ML VIAL ONE (10:28)
[2019-12-13] MEDS ORDERED: diphenhydrAMINE 50 MG/ML VIAL ONE (10:28)
[2019-12-13 11:44] LABS: Bacteria/HPF 3+ HPF (None Seen); Bilirubin Negative (Negative); Blood, Urine Trace (Negative); Clarity Clear (Clear); Glucose, Urine (Dipstick) Normal (Negative); Leukocyte Negative Leu/uL (Negative); Nitrite 2+ (Negative); Protein, Urine (Dipstick) 20 mg/dL (Neg-Trace); Squamous Epithelial None Seen HPF (0-3); Urobilinogen Normal mg/dL (Less than 2); WBC/HPF 0-3 HPF (0-3)
--- NOTE | 2019-12-15 12:02 | EKG ---
Test Reason : Blood Pressure : / mmHG Vent. Rate : 075 BPM Atrial Rate : 102 BPM P-R Int : 000 ms QRS Dur : 076 ms QT Int : 388 ms P-R-T Axes : 000 -01 -06 degrees QTc Int : 433 ms Atrial fibrillation Abnormal ECG Confirmed by GIANNI LOPEZ MD ([id number]), editor in chief newspaper TONIA GIBSON ([id number]) on 12/15/2019 12:01:54 PM Referred By: Confirmed By:GIANNI LOPEZ MD
== END 2019-12-13 12:40 | disposition home or self-care (01) ==
LOC: ERS 08:41
DX: R51 Headache (principal); R11.2 Nausea with vomiting, unspecified; R10.13 Epigastric pain; I10 Essential (primary) hypertension; F32.9 Major depressive disorder, single episode, unspecified; Z79.899 Other long term (current) drug therapy; Z79.82 Long term (current) use of aspirin; Z86.73 Personal history of transient ischemic attack (TIA), and cerebral infarction without residual deficits; Z79.01 Long term (current) use of anticoagulants
CPT/HCPCS: 36415; 70450; 71045; 80053; 81003; 81015; 83690; 84484; 85025; 87077; 87086; 87186; 93005; 96365; 96375; J1200; J1885; J2405; J2765

== ENCOUNTER 2020-05-26 16:10 | Emergency (ER) | payer MEDICARE ==
[2020-05-26] MEDS ORDERED: Acetaminophen 500 MG TAB ONE (17:45)
[2020-05-26] MEDS ORDERED: Metoclopramide HCl 10 MG/2 ML VIAL ONE (17:45)
[2020-05-26] MEDS ORDERED: Magnesium 2 GM/50 ML BAG (IN WATER) ONE (17:45)
--- NOTE | 2020-05-26 17:59 | CT ---
HEAD CT WITHOUT CONTRAST: History: Headache x 5 days. Comparison: 12-13-2019 FINDINGS: Stable malacia and gliosis due to remove left MCA distribution infarct. The remainder of the cerebrum demonstrates preservation of cortical philippe white matter differentiation. There is no midline shift a nd the basilar cisterns are patent. Stable configuration of the ventricular system. No parenchymal hemorrhage or extraaxial hematoma. Calvarium is intact. Adequate aeration of the sinuses and mastoid air cells. IMPRESSION: 1. No acute intracranial process. 2. Findings compatible with remote left MCA distribution infarct. POS: PPP
== END 2020-05-26 19:28 | disposition home or self-care (01) ==
LOC: ERS 16:10
DX: R51 Headache (principal); F32.9 Major depressive disorder, single episode, unspecified; Z86.73 Personal history of transient ischemic attack (TIA), and cerebral infarction without residual deficits; Z79.82 Long term (current) use of aspirin; Z79.84 Long term (current) use of oral hypoglycemic drugs; Z79.899 Other long term (current) drug therapy
CPT/HCPCS: 70450; 96365; 96368; J2765; J3475

== ENCOUNTER 2020-06-25 20:24 | Emergency (ER) | payer BC, MEDICARE ==
--- NOTE | 2020-06-25 21:34 | CT ---
Exam: Head CT without contrast HISTORY: Unwitnessed fall COMPARISON: 05/26/2020 FINDINGS: Hemorrhage: No intraparenchymal hemorrhage or extra-axial hematoma. Brain parenchyma: Stable encephalomalacia and gliosis due to remote left MCA distribution infarct. Wi th regards to the right cerebrum, cortical philippe-white.Stable hypoattenuation involving the left frontal periventricular white matter. Ventricular system: Stable configuration. Ex vacuo dilatation of the frontal horn, temporal and occip ital horn of the left ventricle. Calvarium: Intact. Sinuses and mastoid air cells: Adequate aeration. IMPRESSION: 1. No intracranial posttraumatic sequelae 2. No significant change
--- NOTE | 2020-06-25 21:44 | CT ---
Exam: CT cervical spine without contrast HISTORY: Trauma. Pain. Unwitnessed fall COMPARISON: None FINDINGS: No craniocervical dissociation. Appropriate alignment of the lateral masses of C1 and C2. Intact odon toid process Appropriate alignment of the facets. Straightening of cervical lordosis may be due to patient position, muscle spasm or cervical collar. Soft tissue neck structures: No mass, lymphadenopathy or hematoma. No prevertebral soft tissue swelli ng. Upper mediastinum and lung apices: Unremarkable Central spinal canal: Neural foramina and central spinal canal are patent. Evaluation is limited by t echnique Vertebral bodies: Cervical spine vertebral body height is maintained. No fracture. Irregularity invol ving the inferior endplate of C5, superior plate of C6 and superior endplate of C7 likely due to remote Schmorl's nodes. IMPRESSION: No fracture.
== END 2020-06-25 22:13 | disposition home or self-care (01) ==
LOC: ERS 20:24
DX: M54.2 Cervicalgia (principal); Z86.73 Personal history of transient ischemic attack (TIA), and cerebral infarction without residual deficits; I10 Essential (primary) hypertension; Z79.899 Other long term (current) drug therapy; W19.XXXA Unspecified fall, initial encounter
CPT/HCPCS: 70450; 72125

== ENCOUNTER 2020-08-29 02:32 | Emergency (ER) | payer BC, MEDICARE ==
[2020-08-29] MEDS ORDERED: Acetaminophen 325 MG TAB ONE ×2 (02:48)
== END 2020-08-29 02:54 | disposition home or self-care (01) ==
LOC: ERS 02:32
DX: K02.9 Dental caries, unspecified (principal); I10 Essential (primary) hypertension; F32.9 Major depressive disorder, single episode, unspecified; Z95.1 Presence of aortocoronary bypass graft
CPT/HCPCS: 99282

== ENCOUNTER 2023-06-29 19:35 | Emergency (ER) | payer BC, MEDICARE | END 2023-06-29 22:40 | disposition home or self-care (01) | LOC: ERS 19:35 | DX: S93.401A Sprain of unspecified ligament of right ankle, initial encounter (principal); S90.01XA Contusion of right ankle, initial encounter; I10 Essential (primary) hypertension; X58.XXXA Exposure to other specified factors, initial encounter | CPT/HCPCS: 99283 ==

== ENCOUNTER 2023-10-21 19:07 | Inpatient (IN) | payer MEDICARE, BC ==
[2023-10-21] MEDS ORDERED: Vancomycin 1 GM/200 ML (FROZEN) BAG ONE (19:36)
[2023-10-21] MEDS ORDERED: Ipratropium/Albuterol 3 ML NEB ONE (20:02)
[2023-10-21] MEDS ORDERED: Albuterol 2.5 MG/0.5 ML NEB ONE (20:06)
[2023-10-21 20:11] LABS: #Monocytes 0.8 thou/uL (0.11-0.59); #Neutrophils 8.6 thou/uL (1.40-6.50); %Basophils 0.2 % (0.0-1.0); %Eosinophils 0.1 % (0.0-10.0); %Lymphocytes 7.9 % (21.0-51.0); %Monocytes 7.3 % (0.0-10.0); %Neutrophils 83.7 % (42.0-75.0); Hematocrit 34.2 % (42.0-52.0); Hemoglobin 11.5 g/dL (14.0-18.0); Mean Corpuscular HGB CONC 33.6 g/dL (32.0-36.0); Mean Corpuscular Hemoglobin 27.5 pg (27.0-31.0); Mean Corpuscular Volume 81.8 fl (78.0-98.0); Mean Platelet Volume 10.9 fL (7.4-10.4); Platelet Count 236 10x3/uL (130-400); Red Blood Cell (RBC) Count 4.18 mill/uL (4.70-6.10); White Blood Cell (WBC) Count 10.3 10x3/uL (4.8-10.8)
[2023-10-21 20:26] LABS: Prothrombin Time 94.2 sec (12.0-14.7)
[2023-10-21 20:30] LABS: INR-International Normal Ratio 11.5
[2023-10-21 20:31] LABS: PTT 126.4 sec (22.9-36.1)
[2023-10-21 20:36] LABS: ALT (SGPT) 47 U/L (8-55); AST (SGOT) 53 U/L (5-34); Albumin 3.3 g/dL (3.4-4.8); Alkaline Phosphatase 71 U/L (40-110); Anion Gap 15 mmol/L (10-20); BUN (Urea Nitrogen) 10 mg/dL (8.4-25.7); Bilirubin, Total 0.8 mg/dL (0.2-1.2); Calc. Creatinine Clearance 0 mL/min (70-130); Calcium 8.4 mg/dL (7.8-10.44); Carbon Dioxide 26 mmol/L (23-31); Chloride 97 mmol/L (98-107); Estimated GFR 96; Globulin 3.6 g/dL (2.4-3.5); Glucose 130 mg/dL (83-110); Lipase 18 U/L (8-78); Potassium 3.1 mmol/L (3.5-5.1); Protein, Total 6.9 g/dL (5.8-8.1); Sodium 135 mmol/L (136-145)
[2023-10-21 20:38] LABS: Troponin I Less than 0.010 ng/mL (< 0.028)
[2023-10-21] MEDS ORDERED: Piperacillin/Tazobactam 4.5 GM VIAL ONE (20:47)
[2023-10-21] MEDS ORDERED: Sodium Chloride 0.9% 100 ML ONE (20:48)
[2023-10-21 20:57] LABS: SARS-CoV-2 NAA Rapid Test Not Detected (NotDetected)
[2023-10-21] MEDS ORDERED: Phytonadione 10 MG in Sodium Chloride 0.9% 50 ML IVPB SCH (21:00)
[2023-10-21] MEDS ORDERED: Acetaminophen 325 MG TAB PO PRN (22:16)
[2023-10-21] MEDS ORDERED: Ondansetron PF 4 MG/2 ML Vial IVP PRN (22:16)
[2023-10-21] MEDS ORDERED: methylPREDNISolone Sod Succ/PF 125 MG/2 ML VIAL ONE (22:25)
[2023-10-21] MEDS ORDERED: dilTIAZem 25 MG/5 ML VIAL ONE (22:26)
[2023-10-21] MEDS ORDERED: Ipratropium/Albuterol 3 ML NEB EZPAP PRN (22:40)
[2023-10-21 22:53] VITALS: BMI 32.8
[2023-10-21] MEDS ORDERED: Magnesium 2 GM/50 ML BAG (IN WATER) ONE (23:12)
[2023-10-21] MEDS ORDERED: Acetaminophen 500 MG TAB ONE (23:12)
[2023-10-22] MEDS ORDERED: Potassium Bicarbonate/Cit Ac 20 MEQ TAB PO SCH ×2 (03:30)
[2023-10-22] MEDS ORDERED: Potassium Bicarbonate/Cit Ac 20 MEQ TAB ONE (03:53)
[2023-10-22] MEDS ORDERED: Piperacillin/Tazobactam 3.375 GM VIAL ONE ×2 (03:54→12:17)
[2023-10-22] MEDS ORDERED: Sodium Chloride 0.9% 100 ML ONE ×2 (03:55→12:17)
[2023-10-22] MEDS: Piperacillin/Tazobactam 3.375 GM in Sodium Chloride 0.9% 100 ML IVPB SCH ×3 (04:06→21:59)
[2023-10-22 04:29] LABS: #Monocytes 0.3 thou/uL (0.11-0.59); #Neutrophils 9.2 thou/uL (1.40-6.50); %Basophils 0.1 % (0.0-1.0); %Lymphocytes 4.4 % (21.0-51.0); %Monocytes 2.5 % (0.0-10.0); %Neutrophils 92.2 % (42.0-75.0); Hematocrit 31.7 % (42.0-52.0); Hemoglobin 10.6 g/dL (14.0-18.0); Mean Corpuscular HGB CONC 33.4 g/dL (32.0-36.0); Mean Corpuscular Hemoglobin 28.3 pg (27.0-31.0); Mean Platelet Volume 10.8 fL (7.4-10.4); Platelet Count 238 10x3/uL (130-400); Red Blood Cell (RBC) Count 3.75 mill/uL (4.70-6.10)
[2023-10-22 04:34] LABS: Mean Corpuscular Volume 84.5 fl (78.0-98.0)
[2023-10-22 04:43] LABS: INR-International Normal Ratio 2.4
[2023-10-22 04:56] LABS: Anion Gap 13 mmol/L (10-20); BUN (Urea Nitrogen) 9 mg/dL (8.4-25.7); Calc. Creatinine Clearance 109 mL/min (70-130); Calcium 8.5 mg/dL (7.8-10.44); Carbon Dioxide 26 mmol/L (23-31); Chloride 100 mmol/L (98-107); Estimated GFR 93; Glucose 246 mg/dL (83-110); Magnesium 2.4 mg/dL (1.6-2.6); Potassium 3.2 mmol/L (3.5-5.1); Sodium 136 mmol/L (136-145)
[2023-10-22] MEDS ORDERED: methylPREDNISolone Sod Succ 40 MG VIAL ONE (06:06)
[2023-10-22] MEDS: Vancomycin (BATCH) 1.5 GM in Premix 1 BAG IVPB SCH ×2 (06:28→17:05)
[2023-10-22] MEDS: methylPREDNISolone Sod Succ 40 MG VIAL IVP SCH ×2 (06:28→17:05)
[2023-10-22] MEDS: Ipratropium/Albuterol 3 ML NEB NEB SCH ×6 (07:22→22:49)
[2023-10-22] MEDS ORDERED: Electrolyte Replacement Protocol 1 EACH FS SCH (07:45)
[2023-10-22] MEDS ORDERED: levETIRAcetam 500 MG TAB ONE (09:27)
[2023-10-22] MEDS: levETIRAcetam 500 MG TAB PO SCH ×2 (09:36→22:01)
[2023-10-22] MEDS: guaiFENesin/DM ER PO SCH ×2 (09:36→22:01)
[2023-10-22] MEDS: Gabapentin 300 MG CAP PO SCH ×2 (17:05→22:00)
[2023-10-22 17:25] LABS: Bacteria/HPF None Seen HPF (None Seen); Bilirubin Negative (Negative); Blood, Urine Negative (Negative); CAUTI Indications for Culture Alt mental st,lethar; Clarity Clear (Clear); Glucose, Urine (Dipstick) 50 mg/dL (Negative); Ketone, Urine Trace mg/dL (Negative); Leukocyte Negative Leu/uL (Negative); Nitrite Negative (Negative); Protein, Urine (Dipstick) 70 mg/dL (Neg-Trace); RBC/HPF 0-3 HPF (0-3); Specific Gravity, Urine 1.034 (1.002-1.036); Squamous Epithelial 0-3 HPF (0-3); WBC/HPF 0-3 HPF (0-3)
[2023-10-22 17:28] LABS: Urine Culture Reflex No No
[2023-10-22 17:43] LABS: Legionella Urinary Ag Negative (Negative); Strep pneumo Urine Ag NEGATIVE (NEGATIVE)
[2023-10-22] MEDS: metFORMIN 500 MG TAB PO SCH (22:01)
[2023-10-22] MEDS: Tamsulosin HCl 0.4 MG CAP PO SCH (22:01)
[2023-10-23] MEDS: Ipratropium/Albuterol 3 ML NEB NEB SCH ×6 (02:15→22:45)
[2023-10-23] MEDS: Piperacillin/Tazobactam 3.375 GM in Sodium Chloride 0.9% 100 ML IVPB SCH ×3 (04:16→20:53)
[2023-10-23 04:22] LABS: #Monocytes 0.4 thou/uL (0.11-0.59); %Basophils 0.1 % (0.0-1.0); %Lymphocytes 6.3 % (21.0-51.0); %Monocytes 3.9 % (0.0-10.0); %Neutrophils 88.9 % (42.0-75.0); Hematocrit 30.5 % (42.0-52.0); Hemoglobin 10.1 g/dL (14.0-18.0); Mean Corpuscular HGB CONC 33.1 g/dL (32.0-36.0); Mean Corpuscular Hemoglobin 27.7 pg (27.0-31.0); Mean Corpuscular Volume 83.8 fl (78.0-98.0); Mean Platelet Volume 11.2 fL (7.4-10.4); Platelet Count 296 10x3/uL (130-400); RBC Distribution Width 15.3 % (11.5-14.5); Red Blood Cell (RBC) Count 3.64 mill/uL (4.70-6.10); White Blood Cell (WBC) Count 11.2 10x3/uL (4.8-10.8)
[2023-10-23 04:41] LABS: INR-International Normal Ratio 2.6; Prothrombin Time 29.1 sec (12.0-14.7)
[2023-10-23 04:43] LABS: Vancomycin, Trough 15.9 ug/mL
[2023-10-23 04:49] LABS: Anion Gap 13 mmol/L (10-20); BUN (Urea Nitrogen) 19 mg/dL (8.4-25.7); Calc. Creatinine Clearance 115 mL/min (70-130); Calcium 8.4 mg/dL (7.8-10.44); Carbon Dioxide 27 mmol/L (23-31); Chloride 100 mmol/L (98-107); Estimated GFR 95; Glucose 124 mg/dL (83-110); Magnesium 2.1 mg/dL (1.6-2.6); Potassium 3.8 mmol/L (3.5-5.1); Sodium 136 mmol/L (136-145)
[2023-10-23] MEDS: Vancomycin (BATCH) 1.5 GM in Premix 1 BAG IVPB SCH (05:07)
[2023-10-23] MEDS: methylPREDNISolone Sod Succ 40 MG VIAL IVP SCH ×2 (05:07→18:06)
[2023-10-23] MEDS: guaiFENesin/DM ER PO SCH ×2 (09:03→20:52)
[2023-10-23] MEDS: Atorvastatin Calcium 40 MG TAB PO SCH (09:04)
[2023-10-23] MEDS: Valsartan 80 MG TAB PO SCH (09:04)
[2023-10-23] MEDS: metFORMIN 500 MG TAB PO SCH ×2 (09:04→20:53)
[2023-10-23] MEDS: Finasteride 5 MG TAB PO SCH (09:04)
[2023-10-23] MEDS: Gabapentin 300 MG CAP PO SCH ×3 (09:04→20:53)
[2023-10-23] MEDS: Donepezil HCl 10 MG TAB PO SCH (09:04)
[2023-10-23] MEDS: levETIRAcetam 500 MG TAB PO SCH ×2 (09:04→20:53)
[2023-10-23] MEDS ORDERED: methylPREDNISolone Sod Succ 40 MG VIAL IVP SCH ×2 (10:43→11:30)
[2023-10-23] MEDS ORDERED: dilTIAZem 30 MG TAB PO SCH (15:00)
[2023-10-23] MEDS ORDERED: dilTIAZem CD 180 MG CAP PO SCH (16:00)
[2023-10-23] MEDS: Tamsulosin HCl 0.4 MG CAP PO SCH (20:53)
[2023-10-23 23:40] LABS: Anion Gap 14 mmol/L (10-20); BUN (Urea Nitrogen) 18 mg/dL (8.4-25.7); Calc. Creatinine Clearance 115 mL/min (70-130); Calcium 8.3 mg/dL (7.8-10.44); Carbon Dioxide 25 mmol/L (23-31); Chloride 100 mmol/L (98-107); Estimated GFR 95; Glucose 147 mg/dL (83-110); Magnesium 2.1 mg/dL (1.6-2.6); Potassium 4.3 mmol/L (3.5-5.1); Sodium 135 mmol/L (136-145)
[2023-10-23] MEDS ORDERED: Sodium Chloride 0.9% 1,000 ML IV SCH (23:45)
[2023-10-23] MEDS ORDERED: Atropine Sulfate 0.4 mg/1 ml Vial IVP SCH (23:45)
[2023-10-24] MEDS: Ipratropium/Albuterol 3 ML NEB NEB SCH ×6 (03:09→22:20)
[2023-10-24] MEDS: Piperacillin/Tazobactam 3.375 GM in Sodium Chloride 0.9% 100 ML IVPB SCH ×3 (04:24→20:00)
[2023-10-24 05:00] LABS: #Monocytes 0.3 thou/uL (0.11-0.59); #Neutrophils 7.3 thou/uL (1.40-6.50); %Basophils 0.1 % (0.0-1.0); %Lymphocytes 8.6 % (21.0-51.0); %Monocytes 3.5 % (0.0-10.0); %Neutrophils 87.3 % (42.0-75.0); Hematocrit 30.2 % (42.0-52.0); Hemoglobin 9.8 g/dL (14.0-18.0); Mean Corpuscular HGB CONC 32.5 g/dL (32.0-36.0); Mean Corpuscular Hemoglobin 27.4 pg (27.0-31.0); Mean Corpuscular Volume 84.4 fl (78.0-98.0); Mean Platelet Volume 10.9 fL (7.4-10.4); Platelet Count 332 10x3/uL (130-400); RBC Distribution Width 15.5 % (11.5-14.5); Red Blood Cell (RBC) Count 3.58 mill/uL (4.70-6.10); White Blood Cell (WBC) Count 8.4 10x3/uL (4.8-10.8)
[2023-10-24 05:16] LABS: INR-International Normal Ratio 4.6; Prothrombin Time 45.4 sec (12.0-14.7)
[2023-10-24] MEDS: methylPREDNISolone Sod Succ 40 MG VIAL IVP SCH ×2 (05:25→17:23)
[2023-10-24 05:35] LABS: Anion Gap 12 mmol/L (10-20); BUN (Urea Nitrogen) 18 mg/dL (8.4-25.7); Calc. Creatinine Clearance 130 mL/min (70-130); Calcium 8.1 mg/dL (7.8-10.44); Carbon Dioxide 28 mmol/L (23-31); Chloride 101 mmol/L (98-107); Estimated GFR 98; Glucose 119 mg/dL (83-110); Magnesium 2.1 mg/dL (1.6-2.6); Potassium 4.2 mmol/L (3.5-5.1); Sodium 137 mmol/L (136-145)
[2023-10-24] MEDS: levETIRAcetam 500 MG TAB PO SCH ×2 (09:46→20:01)
[2023-10-24] MEDS: Gabapentin 300 MG CAP PO SCH ×3 (09:47→20:01)
[2023-10-24] MEDS: Donepezil HCl 10 MG TAB PO SCH (09:48)
[2023-10-24] MEDS: metFORMIN 500 MG TAB PO SCH ×2 (09:51→20:01)
[2023-10-24] MEDS: dilTIAZem CD 180 MG CAP PO SCH (10:23)
[2023-10-24] MEDS: Valsartan 80 MG TAB PO SCH (12:09)
[2023-10-24] MEDS: Finasteride 5 MG TAB PO SCH (12:17)
[2023-10-24] MEDS: Atorvastatin Calcium 40 MG TAB PO SCH (12:20)
[2023-10-24] MEDS: guaiFENesin/DM ER PO SCH ×2 (12:21→20:01)
[2023-10-24] MEDS ORDERED: Atropine Sulfate 1 mg/10 ml Syringe IVP PRN (16:59)
[2023-10-24] MEDS: Tamsulosin HCl 0.4 MG CAP PO SCH (20:01)
[2023-10-25] MEDS: Ipratropium/Albuterol 3 ML NEB NEB SCH ×5 (03:00→22:40)
[2023-10-25 04:21] LABS: INR-International Normal Ratio 5.2; Prothrombin Time 50.3 sec (12.0-14.7)
[2023-10-25] MEDS: Piperacillin/Tazobactam 3.375 GM in Sodium Chloride 0.9% 100 ML IVPB SCH ×3 (05:07→20:45)
[2023-10-25] MEDS: methylPREDNISolone Sod Succ 40 MG VIAL IVP SCH (05:07)
[2023-10-25] MEDS: levETIRAcetam 500 MG TAB PO SCH ×2 (08:22→20:44)
[2023-10-25] MEDS: Valsartan 80 MG TAB PO SCH (08:22)
[2023-10-25] MEDS: Atorvastatin Calcium 40 MG TAB PO SCH (08:22)
[2023-10-25] MEDS: Gabapentin 300 MG CAP PO SCH ×3 (08:22→20:44)
[2023-10-25] MEDS: Finasteride 5 MG TAB PO SCH (08:23)
[2023-10-25] MEDS: dilTIAZem CD 180 MG CAP PO SCH (08:23)
[2023-10-25] MEDS: Donepezil HCl 10 MG TAB PO SCH (08:23)
[2023-10-25] MEDS: guaiFENesin/DM ER PO SCH (08:23)
[2023-10-25] MEDS: metFORMIN 500 MG TAB PO SCH ×2 (08:23→20:44)
[2023-10-25] MEDS ORDERED: Piperacillin/Tazobactam 3.375 GM VIAL ONE (11:54)
[2023-10-25] MEDS: Tamsulosin HCl 0.4 MG CAP PO SCH (20:44)
[2023-10-26] MEDS: Piperacillin/Tazobactam 3.375 GM in Sodium Chloride 0.9% 100 ML IVPB SCH ×2 (05:17→12:02)
[2023-10-26] MEDS: Ipratropium/Albuterol 3 ML NEB NEB SCH ×3 (06:52→18:59)
[2023-10-26 08:20] LABS: #Monocytes 0.4 thou/uL (0.11-0.59); #Neutrophils 6.7 thou/uL (1.40-6.50); %Basophils 0.2 % (0.0-1.0); %Eosinophils 0.1 % (0.0-10.0); %Lymphocytes 13.7 % (21.0-51.0); %Monocytes 5.2 % (0.0-10.0); %Neutrophils 78.8 % (42.0-75.0); Hematocrit 34.4 % (42.0-52.0); Hemoglobin 10.9 g/dL (14.0-18.0); Mean Corpuscular HGB CONC 31.7 g/dL (32.0-36.0); Mean Corpuscular Hemoglobin 27.5 pg (27.0-31.0); Mean Corpuscular Volume 86.9 fl (78.0-98.0); Mean Platelet Volume 10.3 fL (7.4-10.4); Platelet Count 354 10x3/uL (130-400); RBC Distribution Width 15.9 % (11.5-14.5); Red Blood Cell (RBC) Count 3.96 mill/uL (4.70-6.10); White Blood Cell (WBC) Count 8.5 10x3/uL (4.8-10.8)
[2023-10-26 08:59] LABS: Anion Gap 13 mmol/L (10-20); BUN (Urea Nitrogen) 17 mg/dL (8.4-25.7); Calc. Creatinine Clearance 125 mL/min (70-130); Calcium 8.3 mg/dL (7.8-10.44); Carbon Dioxide 26 mmol/L (23-31); Chloride 102 mmol/L (98-107); Estimated GFR 97; Glucose 85 mg/dL (83-110); Potassium 4.3 mmol/L (3.5-5.1); Sodium 137 mmol/L (136-145)
[2023-10-26] MEDS: Valsartan 80 MG TAB PO SCH (09:34)
[2023-10-26] MEDS: Atorvastatin Calcium 40 MG TAB PO SCH (09:34)
[2023-10-26] MEDS: Finasteride 5 MG TAB PO SCH (09:34)
[2023-10-26] MEDS: metFORMIN 500 MG TAB PO SCH ×2 (09:34→20:24)
[2023-10-26] MEDS: Donepezil HCl 10 MG TAB PO SCH (09:34)
[2023-10-26] MEDS: predniSONE 20 MG TAB PO SCH (09:34)
[2023-10-26] MEDS: dilTIAZem CD 180 MG CAP PO SCH (09:34)
[2023-10-26] MEDS: Gabapentin 300 MG CAP PO SCH ×3 (09:35→20:23)
[2023-10-26] MEDS: levETIRAcetam 500 MG TAB PO SCH ×2 (09:35→20:24)
[2023-10-26] MEDS: Amoxicillin/Potassium Clav 875 MG TAB PO SCH (20:23)
[2023-10-26] MEDS: Tamsulosin HCl 0.4 MG CAP PO SCH (20:24)
[2023-10-27 04:48] LABS: #Monocytes 0.5 thou/uL (0.11-0.59); #Neutrophils 6.5 thou/uL (1.40-6.50); %Basophils 0.1 % (0.0-1.0); %Eosinophils 0.2 % (0.0-10.0); %Lymphocytes 10.8 % (21.0-51.0); %Monocytes 6.1 % (0.0-10.0); %Neutrophils 78.9 % (42.0-75.0); Hematocrit 33.5 % (42.0-52.0); Hemoglobin 10.9 g/dL (14.0-18.0); Mean Corpuscular HGB CONC 32.5 g/dL (32.0-36.0); Mean Corpuscular Hemoglobin 27.7 pg (27.0-31.0); Mean Platelet Volume 10.1 fL (7.4-10.4); Platelet Count 408 10x3/uL (130-400); RBC Distribution Width 15.9 % (11.5-14.5); Red Blood Cell (RBC) Count 3.94 mill/uL (4.70-6.10); White Blood Cell (WBC) Count 8.3 10x3/uL (4.8-10.8)
[2023-10-27 05:01] LABS: INR-International Normal Ratio 3.3; PTT 45.2 sec (22.9-36.1); Prothrombin Time 34.9 sec (12.0-14.7)
[2023-10-27 05:22] LABS: Anion Gap 11 mmol/L (10-20); BUN (Urea Nitrogen) 18 mg/dL (8.4-25.7); Calc. Creatinine Clearance 126 mL/min (70-130); Calcium 8.4 mg/dL (7.8-10.44); Carbon Dioxide 28 mmol/L (23-31); Chloride 102 mmol/L (98-107); Estimated GFR 97; Glucose 82 mg/dL (83-110); Potassium 4.3 mmol/L (3.5-5.1); Sodium 137 mmol/L (136-145)
[2023-10-27] MEDS: Ipratropium/Albuterol 3 ML NEB NEB SCH ×3 (07:07→18:40)
[2023-10-27] MEDS: Gabapentin 300 MG CAP PO SCH ×3 (09:03→20:05)
[2023-10-27] MEDS: dilTIAZem CD 180 MG CAP PO SCH (09:03)
[2023-10-27] MEDS: levETIRAcetam 500 MG TAB PO SCH ×2 (09:03→20:06)
[2023-10-27] MEDS: Finasteride 5 MG TAB PO SCH (09:03)
[2023-10-27] MEDS: Donepezil HCl 10 MG TAB PO SCH (09:03)
[2023-10-27] MEDS: metFORMIN 500 MG TAB PO SCH ×2 (09:03→20:06)
[2023-10-27] MEDS: predniSONE 20 MG TAB PO SCH (09:03)
[2023-10-27] MEDS: Atorvastatin Calcium 40 MG TAB PO SCH (09:03)
[2023-10-27] MEDS: Valsartan 80 MG TAB PO SCH (09:03)
[2023-10-27] MEDS: Amoxicillin/Potassium Clav 875 MG TAB PO SCH ×2 (09:03→20:05)
[2023-10-27] MEDS ORDERED: Digoxin 0.5 MG/2 ML AMP SLOW IVP SCH (10:15)
[2023-10-27] MEDS: Digoxin 0.5 MG/2 ML AMP SLOW IVP SCH ×2 (15:55→21:14)
[2023-10-27] MEDS: Tamsulosin HCl 0.4 MG CAP PO SCH (20:06)
[2023-10-28] MEDS: Digoxin 0.5 MG/2 ML AMP SLOW IVP SCH (03:46)
[2023-10-28] MEDS: Ipratropium/Albuterol 3 ML NEB NEB SCH ×2 (07:33→14:25)
[2023-10-28] MEDS ORDERED: predniSONE 5 MG TAB PO SCH (08:00)
[2023-10-28] MEDS: levETIRAcetam 500 MG TAB PO SCH (09:09)
[2023-10-28] MEDS: metFORMIN 500 MG TAB PO SCH (09:09)
[2023-10-28] MEDS: Gabapentin 300 MG CAP PO SCH ×2 (09:09→13:49)
[2023-10-28] MEDS: Atorvastatin Calcium 40 MG TAB PO SCH (09:09)
[2023-10-28] MEDS: Donepezil HCl 10 MG TAB PO SCH (09:09)
[2023-10-28] MEDS: Amoxicillin/Potassium Clav 875 MG TAB PO SCH (09:09)
[2023-10-28] MEDS: Finasteride 5 MG TAB PO SCH (09:09)
[2023-10-28] MEDS: Valsartan 80 MG TAB PO SCH (09:09)
[2023-10-28] MEDS: dilTIAZem CD 180 MG CAP PO SCH (09:09)
[2023-10-28 12:41] VITALS: BP 125/78; TEMP 97.8
[2023-10-28] MEDS ORDERED: dilTIAZem 30 MG TAB PO SCH (13:00)
[2023-10-29] MEDS ORDERED: dilTIAZem CD 240 MG CAP PO SCH (09:00)
== END 2023-10-28 14:49 | disposition home or self-care (01) | DRG 193 ==
LOC: ERS 19:07 → ERHOLD 22:20 → MERGE 22:20 → 2NO 10-22 14:09
PROVIDERS: ADMIT Internal Medicine; ATTEND Internal Medicine
DX: J18.9 Pneumonia, unspecified organism (principal); G93.41 Metabolic encephalopathy; J96.01 Acute respiratory failure with hypoxia; I48.19 Other persistent atrial fibrillation; I69.351 Hemiplegia and hemiparesis following cerebral infarction affecting right dominant side; D68.9 Coagulation defect, unspecified; I25.10 Atherosclerotic heart disease of native coronary artery without angina pectoris; G40.909 Epilepsy, unspecified, not intractable, without status epilepticus; E87.6 Hypokalemia; E78.5 Hyperlipidemia, unspecified; I10 Essential (primary) hypertension; Z79.01 Long term (current) use of anticoagulants; Z86.711 Personal history of pulmonary embolism; Z79.899 Other long term (current) drug therapy; Z79.51 Long term (current) use of inhaled steroids; Z79.84 Long term (current) use of oral hypoglycemic drugs; Z98.890 Other specified postprocedural states; Z11.52 Encounter for screening for COVID-19
CPT/HCPCS: 36415; 36416; 70450; 71045; 74230; 80048; 80053; 80202; 81001; 83605; 83690; 83735; 83880; 84484; 85025; 85610; 85730; 87040; 87070; 87081; 87205; 87449; 87804; 87899; 93005; 93010; 94640; 96361; 96365; 96366; 96367; 96375; J0461; J1160; J2543; J2920; J2930; J3370; J3370-JW; J3430; J3475; J3490; J7050; J7512; J7611; J7620; U0002

== ENCOUNTER 2023-10-29 12:18 | Inpatient (IN) | payer BC, MEDICARE ==
[2023-10-29 13:18] LABS: #Monocytes 0.5 thou/uL (0.11-0.59); #Neutrophils 5.6 thou/uL (1.40-6.50); %Basophils 0.3 % (0.0-1.0); %Eosinophils 0.5 % (0.0-10.0); %Lymphocytes 16.9 % (21.0-51.0); %Monocytes 6.3 % (0.0-10.0); %Neutrophils 71.5 % (42.0-75.0); Hemoglobin 12.7 g/dL (14.0-18.0); Mean Corpuscular HGB CONC 31.8 g/dL (32.0-36.0); Mean Corpuscular Hemoglobin 27.4 pg (27.0-31.0); Mean Corpuscular Volume 86.4 fl (78.0-98.0); Mean Platelet Volume 9.8 fL (7.4-10.4); Platelet Count 411 10x3/uL (130-400); Red Blood Cell (RBC) Count 4.63 mill/uL (4.70-6.10); White Blood Cell (WBC) Count 7.8 10x3/uL (4.8-10.8)
[2023-10-29] MEDS ORDERED: diphenhydrAMINE 50 MG/ML VIAL ONE (13:19)
[2023-10-29] MEDS ORDERED: Acetaminophen 500 MG TAB ONE (13:19)
[2023-10-29] MEDS ORDERED: Metoclopramide HCl 10 MG/2 ML VIAL ONE (13:19)
[2023-10-29 13:41] LABS: ALT (SGPT) 49 U/L (8-55); AST (SGOT) 24 U/L (5-34); Albumin 3.5 g/dL (3.4-4.8); Alkaline Phosphatase 77 U/L (40-110); Anion Gap 14 mmol/L (10-20); BUN (Urea Nitrogen) 17 mg/dL (8.4-25.7); Bilirubin, Total 0.9 mg/dL (0.2-1.2); Calc. Creatinine Clearance 0 mL/min (70-130); Carbon Dioxide 28 mmol/L (23-31); Chloride 98 mmol/L (98-107); Estimated GFR 91; Globulin 3.5 g/dL (2.4-3.5); Glucose 152 mg/dL (83-110); Sodium 136 mmol/L (136-145)
[2023-10-29 13:44] LABS: Troponin I Less than 0.010 ng/mL (< 0.028)
[2023-10-29 14:35] LABS: Bacteria/HPF None Seen HPF (None Seen); Bilirubin Negative (Negative); Blood, Urine Negative (Negative); CAUTI Indications for Culture Alt mental st,lethar; Clarity Clear (Clear); Glucose, Urine (Dipstick) Normal (Negative); Ketone, Urine Negative (Negative); Leukocyte Negative Leu/uL (Negative); Nitrite Negative (Negative); Protein, Urine (Dipstick) Negative (Neg-Trace); RBC/HPF None Seen HPF (0-3); Specific Gravity, Urine 1.007 (1.002-1.036); Squamous Epithelial 0-3 HPF (0-3); Urobilinogen Normal mg/dL (Less than 2); WBC/HPF 0-3 HPF (0-3); pH, Urine 5.5 (5.0-9.0)
[2023-10-29 14:44] LABS: Urine Culture Reflex No No
[2023-10-29] MEDS ORDERED: cefTRIAXone (ROCEPHIN) 2 GM VIAL ONE (15:45)
[2023-10-29] MEDS ORDERED: Azithromycin 500 MG VIAL ONE (15:45)
[2023-10-29] MEDS ORDERED: Sodium Chloride 0.9% 100 ML ONE (15:46)
[2023-10-29] MEDS ORDERED: Ondansetron PF 4 MG/2 ML Vial IVP PRN (17:11)
[2023-10-29] MEDS ORDERED: Acetaminophen 325 MG TAB PO PRN (17:11)
[2023-10-29] MEDS ORDERED: Glucagon 1 MG/ML KIT IM PRN (17:24)
[2023-10-29] MEDS ORDERED: HumaLOG 300 UNITS/3 ML VIAL SC PRN (17:24)
[2023-10-29] MEDS ORDERED: Dextrose 50% Abboject 50 ML SYRINGE SLOW IVP PRN (17:24)
[2023-10-29] MEDS ORDERED: Dextrose 5% in Water 1,000 ML IV PRN (17:24)
[2023-10-29 19:23] LABS: Lactic Acid 0.9 mmol/L (0.5-2.2)
[2023-10-29] MEDS: Lactated Ringer's 1,000 ML IV SCH (19:43)
[2023-10-29] MEDS: Famotidine 20 MG TAB PO SCH (20:33)
[2023-10-29] MEDS: Amoxicillin/Potassium Clav 875 MG TAB PO SCH (20:34)
[2023-10-29] MEDS: Donepezil HCl 10 MG TAB PO SCH (20:34)
[2023-10-29] MEDS: levETIRAcetam 500 MG TAB PO SCH (20:34)
[2023-10-29] MEDS: Tamsulosin HCl 0.4 MG CAP PO SCH (20:34)
[2023-10-29] MEDS: Apixaban 5 MG TAB PO SCH (20:34)
[2023-10-29] MEDS ORDERED: Gabapentin 300 MG CAP PO SCH (21:00)
[2023-10-29] MEDS ORDERED: Atropine Sulfate 1 mg/10 ml Syringe IVP PRN (21:11)
[2023-10-29 21:40] VITALS: BMI 31.7
[2023-10-30] MEDS: Lactated Ringer's 1,000 ML IV SCH ×2 (03:34→06:23)
[2023-10-30 04:32] LABS: Hematocrit 33.1 % (42.0-52.0); Hemoglobin 10.3 g/dL (14.0-18.0); Manual Diff?? YES; Mean Corpuscular HGB CONC 31.1 g/dL (32.0-36.0); Mean Corpuscular Hemoglobin 27.5 pg (27.0-31.0); Mean Corpuscular Volume 88.3 fl (78.0-98.0); Mean Platelet Volume 9.6 fL (7.4-10.4); Platelet Count 330 10x3/uL (130-400); RBC Distribution Width 16.4 % (11.5-14.5); Red Blood Cell (RBC) Count 3.75 mill/uL (4.70-6.10); White Blood Cell (WBC) Count 5.7 10x3/uL (4.8-10.8)
[2023-10-30 04:42] LABS: Delete Auto Diff?? YES; Lactic Acid 0.6 mmol/L (0.5-2.2)
[2023-10-30 04:45] LABS: INR-International Normal Ratio 1.3; Prothrombin Time 16.3 sec (12.0-14.7)
[2023-10-30 05:00] LABS: Anion Gap 11 mmol/L (10-20); BUN (Urea Nitrogen) 14 mg/dL (8.4-25.7); Calc. Creatinine Clearance 117 mL/min (70-130); Calcium 7.7 mg/dL (7.8-10.44); Carbon Dioxide 26 mmol/L (23-31); Chloride 104 mmol/L (98-107); Estimated GFR 96; Glucose 82 mg/dL (83-110); Sodium 137 mmol/L (136-145)
[2023-10-30 06:41] LABS: Band 1 % (5-11); CellaVision Operator ID lab.abc; Eosinophils 2 % (0-10); Lymphocytes 14 % (21-51); Metamyelocyte 2 % (0-0); Monocytes 7 % (0-10); Myelocyte 1 % (0-0); Neutrophil 74 % (42-75); Platelet Adequacy Comment Platelets Normal; Polychromasia SLIGHT = 2-3 cells HPF (0-2); Smudge Cells 7.8 %; Total Cell Count 102
[2023-10-30] MEDS: Finasteride 5 MG TAB PO SCH (08:29)
[2023-10-30] MEDS: Famotidine 20 MG TAB PO SCH ×2 (08:29→21:29)
[2023-10-30] MEDS: Amoxicillin/Potassium Clav 875 MG TAB PO SCH ×2 (08:29→21:28)
[2023-10-30] MEDS: levETIRAcetam 500 MG TAB PO SCH ×2 (08:29→21:28)
[2023-10-30] MEDS: Gabapentin 100 MG CAP PO SCH ×3 (08:29→21:28)
[2023-10-30] MEDS: Apixaban 5 MG TAB PO SCH ×2 (08:29→21:28)
[2023-10-30] MEDS: PARoxetine 20 MG TAB PO SCH (08:29)
[2023-10-30] MEDS ORDERED: Atorvastatin Calcium 20 MG TAB PO SCH (21:00)
[2023-10-30] MEDS: Tamsulosin HCl 0.4 MG CAP PO SCH (21:28)
[2023-10-30] MEDS: Donepezil HCl 10 MG TAB PO SCH (21:28)
[2023-10-31] MEDS: Finasteride 5 MG TAB PO SCH (09:25)
[2023-10-31] MEDS: Amoxicillin/Potassium Clav 875 MG TAB PO SCH (09:25)
[2023-10-31] MEDS: Famotidine 20 MG TAB PO SCH (09:25)
[2023-10-31] MEDS: Apixaban 5 MG TAB PO SCH (09:25)
[2023-10-31] MEDS: levETIRAcetam 500 MG TAB PO SCH (09:25)
[2023-10-31] MEDS: Gabapentin 100 MG CAP PO SCH (09:25)
[2023-10-31] MEDS: PARoxetine 20 MG TAB PO SCH (09:26)
[2023-10-31 12:29] VITALS: BP 123/82; TEMP 97.6
== END 2023-10-31 12:25 | disposition home or self-care (01) | DRG 194 ==
LOC: ERS 12:18 → ERHOLD 16:10 → 2SW 19:32
PROVIDERS: ADMIT Internal Medicine; ATTEND Internal Medicine
DX: J18.9 Pneumonia, unspecified organism (principal); I48.19 Other persistent atrial fibrillation; I69.951 Hemiplegia and hemiparesis following unspecified cerebrovascular disease affecting right dominant side; I10 Essential (primary) hypertension; Z95.5 Presence of coronary angioplasty implant and graft; F32.A Depression, unspecified; E11.9 Type 2 diabetes mellitus without complications; Z79.84 Long term (current) use of oral hypoglycemic drugs; Z79.899 Other long term (current) drug therapy; I25.10 Atherosclerotic heart disease of native coronary artery without angina pectoris; Z82.49 Family history of ischemic heart disease and other diseases of the circulatory system; N40.0 Benign prostatic hyperplasia without lower urinary tract symptoms; D64.9 Anemia, unspecified; E78.5 Hyperlipidemia, unspecified
CPT/HCPCS: 36415; 36416; 70450; 71045; 80048; 80053; 81001; 83605; 84145; 84484; 85025; 85610; 87040; 93005; 93010; 93306; 96361; 96365; 96367; 96375; J0456; J0696; J1200; J2765; J3490; J7120

== ENCOUNTER 2025-01-07 01:48 | Inpatient (IN) | payer BC, MEDICARE ==
[2025-01-07] MEDS ORDERED: Ipratropium/Albuterol 3 ML NEB ONE ×2 (02:22→05:18)
[2025-01-07 02:33] LABS: #Basophils Less than 0.03 10x3/uL (0.0-0.2); %Basophils 0.2 % (0.0-1.0); %Eosinophils 3.4 % (0.0-10.0); %Lymphocytes 14.7 % (21.0-51.0); %Neutrophils 69.5 % (42.0-75.0); Hematocrit 33.6 % (42.0-52.0); Hemoglobin 11.2 g/dL (14.0-18.0); Mean Corpuscular HGB CONC 33.3 g/dL (32.0-36.0); Mean Corpuscular Hemoglobin 28.4 pg (27.0-31.0); Mean Corpuscular Volume 85.1 fL (78.0-98.0); Mean Platelet Volume 10.3 fL (7.4-10.4); Platelet Count 159 10x3/uL (130-400); RBC Distribution Width 14.6 % (11.5-14.5); Red Blood Cell (RBC) Count 3.95 mill/uL (4.70-6.10)
[2025-01-07 03:01] LABS: ALT (SGPT) 15 U/L (Less than 45); AST (SGOT) 26 U/L (11-34); Albumin 3.5 g/dL (3.1-4.5); Alkaline Phosphatase 66 U/L (40-110); Anion Gap 13 mmol/L (10-20); BUN (Urea Nitrogen) 9 mg/dL (8.4-25.7); Bilirubin, Total 0.7 mg/dL (0.3-1.2); Calc. Creatinine Clearance 0 mL/min (70-130); Calcium 8.7 mg/dL (7.8-10.44); Carbon Dioxide 26 mmol/L (23-31); Chloride 105 mmol/L (98-107); Estimated GFR 96; Globulin 3.3 g/dL (2.4-3.5); Glucose 108 mg/dL (83-110); Potassium 3.8 mmol/L (3.5-5.1); Protein, Total 6.8 g/dL (5.8-8.1); Sodium 140 mmol/L (136-145)
[2025-01-07] MEDS ORDERED: methylPREDNISolone Sod Succ/PF 125 MG/2 ML VIAL ONE (03:49)
[2025-01-07] MEDS ORDERED: Magnesium 2 GM/50 ML BAG (IN WATER) ONE (05:18)
[2025-01-07] MEDS ORDERED: cefTRIAXone (ROCEPHIN) 1 GM VIAL ONE (06:48)
[2025-01-07] MEDS ORDERED: Sterile Water 10 ML ONE (06:48)
[2025-01-07] MEDS ORDERED: Ondansetron ODT 4 MG TAB PO PRN (08:42)
[2025-01-07] MEDS ORDERED: Albuterol 2.5 MG (3 mL) NEB NEB PRN (08:42)
[2025-01-07] MEDS ORDERED: Senokot S 8.6-50 MG TAB PO PRN (08:42)
[2025-01-07] MEDS ORDERED: Dextrose 50% Abboject 50 ML SYRINGE SLOW IVP PRN (08:42)
[2025-01-07] MEDS ORDERED: Insulin Regular, Human 100 UNIT/ML 10 ML VIAL SC PRN (08:42)
[2025-01-07] MEDS ORDERED: Glucagon 1 MG/ML KIT IM PRN (08:42)
[2025-01-07] MEDS ORDERED: Acetaminophen 650 MG Suppository PR PRN (08:42)
[2025-01-07] MEDS ORDERED: Dextrose 5% in Water 1,000 ML IV PRN (08:42)
[2025-01-07] MEDS ORDERED: Ondansetron PF 4 MG/2 ML Vial IVP PRN (08:42)
[2025-01-07] MEDS ORDERED: GUAIFENESIN DM SF 5 ML UDCUP PO PRN (08:47)
[2025-01-07] MEDS ORDERED: Lorazepam 2 MG/ML VIAL SLOW IVP PRN (08:52)
[2025-01-07 09:37] VITALS: BMI 39.1
[2025-01-07] MEDS: Tamsulosin HCl 0.4 MG CAP PO SCH (09:42)
[2025-01-07] MEDS: Apixaban 5 MG TAB PO SCH (09:42)
[2025-01-07] MEDS: levETIRAcetam 500 MG TAB PO SCH (09:43)
[2025-01-07] MEDS: Famotidine 20 MG TAB PO SCH (09:43)
[2025-01-07] MEDS: Ipratropium/Albuterol 3 ML NEB NEB SCH (12:54)
[2025-01-07] MEDS: Ampicillin/Sulbactam 3 GM in Sodium Chloride 0.9% 100 ML IVPB SCH (13:03)
[2025-01-07] MEDS: Gabapentin 300 MG CAP PO SCH (15:47)
[2025-01-07] MEDS: Acetaminophen 325 MG TAB PO PRN (21:15)
[2025-01-07] MEDS: methylPREDNISolone Sod Succ 40 MG VIAL IVP SCH (21:16)
[2025-01-07] MEDS: Donepezil HCl 10 MG TAB PO SCH (21:16)
[2025-01-08] MEDS: Insulin Lispro 100 UNIT/ML 10 ML VIAL SC PRN (05:40)
[2025-01-08 06:11] LABS: #Basophils Less than 0.03 10x3/uL (0.0-0.2); #Eosinophils Less than 0.03 10x3/uL (0.0-0.7); %Basophils 0.2 % (0.0-1.0); %Monocytes 4.1 % (0.0-10.0); %Neutrophils 89.4 % (42.0-75.0); Hematocrit 34.7 % (42.0-52.0); Hemoglobin 11.3 g/dL (14.0-18.0); Mean Corpuscular HGB CONC 32.6 g/dL (32.0-36.0); Mean Corpuscular Hemoglobin 27.8 pg (27.0-31.0); Mean Corpuscular Volume 85.5 fL (78.0-98.0); Mean Platelet Volume 10.8 fL (7.4-10.4); Platelet Count 183 10x3/uL (130-400); RBC Distribution Width 14.7 % (11.5-14.5); Red Blood Cell (RBC) Count 4.06 mill/uL (4.70-6.10)
[2025-01-08 06:31] LABS: Anion Gap 15 mmol/L (10-20); BUN (Urea Nitrogen) 15 mg/dL (8.4-25.7); Calc. Creatinine Clearance 165 mL/min (70-130); Calcium 8.6 mg/dL (7.8-10.44); Carbon Dioxide 25 mmol/L (23-31); Chloride 105 mmol/L (98-107); Estimated GFR 100; Glucose 148 mg/dL (83-110); Potassium 3.9 mmol/L (3.5-5.1); Sodium 141 mmol/L (136-145)
[2025-01-08] MEDS: Atorvastatin Calcium 40 MG TAB PO SCH (09:04)
[2025-01-08] MEDS: Finasteride 5 MG TAB PO SCH (09:04)
[2025-01-08] MEDS: dilTIAZem CD 240 MG CAP PO SCH (09:04)
[2025-01-08] MEDS: Mometasone 200 MCG/Formoterol 5 MCG 120 PUFF INHALER INH SCH ×2 (13:41→19:18)
[2025-01-08] MEDS: Ipratropium/Albuterol 3 ML NEB NEB SCH (14:09)
[2025-01-08] MEDS: Apixaban 5 MG TAB PO SCH (20:54)
[2025-01-08] MEDS: metFORMIN 500 MG TAB PO SCH (20:55)
[2025-01-09 05:44] LABS: #Basophils Less than 0.03 10x3/uL (0.0-0.2); #Eosinophils Less than 0.03 10x3/uL (0.0-0.7); %Lymphocytes 5.5 % (21.0-51.0); %Neutrophils 91.1 % (42.0-75.0); Hematocrit 34.2 % (42.0-52.0); Hemoglobin 11.2 g/dL (14.0-18.0); Mean Corpuscular HGB CONC 32.7 g/dL (32.0-36.0); Mean Corpuscular Hemoglobin 27.7 pg (27.0-31.0); Mean Corpuscular Volume 84.7 fL (78.0-98.0); Mean Platelet Volume 10.8 fL (7.4-10.4); Platelet Count 190 10x3/uL (130-400); Red Blood Cell (RBC) Count 4.04 mill/uL (4.70-6.10)
[2025-01-09 06:14] LABS: Anion Gap 17 mmol/L (10-20); BUN (Urea Nitrogen) 16 mg/dL (8.4-25.7); Calc. Creatinine Clearance 148 mL/min (70-130); Calcium 8.5 mg/dL (7.8-10.44); Carbon Dioxide 24 mmol/L (23-31); Chloride 105 mmol/L (98-107); Estimated GFR 97; Glucose 148 mg/dL (83-110); Potassium 3.9 mmol/L (3.5-5.1); Sodium 142 mmol/L (136-145)
[2025-01-09] MEDS: PARoxetine 20 MG TAB PO SCH (09:12)
[2025-01-09 12:07] VITALS: BP 124/74; TEMP 97.8
== END 2025-01-09 16:35 | disposition home or self-care (01) | DRG 193 ==
LOC: ERS 01:48 → T4-A 08:39 → OBSVTOIN 01-08 09:29
PROVIDERS: ADMIT Student in an Organized Health Care Education/Training Program; ATTEND Family Medicine
DX: J18.9 Pneumonia, unspecified organism (principal); G93.41 Metabolic encephalopathy; I48.20 Chronic atrial fibrillation, unspecified; I69.351 Hemiplegia and hemiparesis following cerebral infarction affecting right dominant side; J44.1 Chronic obstructive pulmonary disease with (acute) exacerbation; J44.0 Chronic obstructive pulmonary disease with (acute) lower respiratory infection; G40.909 Epilepsy, unspecified, not intractable, without status epilepticus; I10 Essential (primary) hypertension; E78.5 Hyperlipidemia, unspecified; E11.9 Type 2 diabetes mellitus without complications; Z86.711 Personal history of pulmonary embolism; Z79.01 Long term (current) use of anticoagulants; Z95.1 Presence of aortocoronary bypass graft; Z79.84 Long term (current) use of oral hypoglycemic drugs; Z79.899 Other long term (current) drug therapy
CPT/HCPCS: 36415; 36416; 71045; 74230; 80048; 80053; 83605; 85025; 87428; 93005; 94640; 94760; 96365; 96366; 96367; 96368; 96375; 96376; G0378; J0295; J0696; J1815; J2919; J3475; J7620